=== PATIENT | female | born 1955 | race Caucasian/White ===

== ENCOUNTER 2016-09-22 12:52 | Inpatient (IN) | payer OTHER ==
[~2016-09-22] VITALS: Ht 162.6 cm; Wt 72.6 kg
[2016-09-22] VITALS (7 sets, daily range): BP systolic 118–158; BP diastolic 59–81; PULSE 72–108; RESP 18–20; TEMP 96.7–98.3; O2SAT 88–99
[~2016-09-22 12:52] MED LIST: BLOOD GLUCOSE T1 TES T-DERMAL; CELE10TA PO; CILO100T PO; FENO145T2 PO; LANTINJ SQ; LEVE500T8 PO; LOSA100T PO; LOVA20TA PO; LYRI150C PO; MELO7.5T4 PO; METF1000 PO; METO50TA PO; NOVOINJ3 SQ; ONETMIS2 T-DERMAL; PENT400T PO; POTA10CA PO; TRAM50TA PO; [UNRECOGNIZED DRUG - OTHER] T-DERMAL; [UNRECOGNIZED DRUG - OTHER] T-DERMAL
[2016-09-22] MEDS ORDERED: SODIUM CHLOR 0.9% 1000 ML INJ 1,000 ML IV SCH (13:06)
--- NOTE | 2016-09-22 13:14 | PD ---
HPI Chief Complaint: General Weakness Time Seen by Provider: 13:06 Travel History International Travel<30 days: No Contact w/Intl Traveler<30days: No Traveled to known affect area: No History of Present Illness HPI This 61-year-old woman who presents to the emergency department brought in by a friend complaining of unsteadiness in her gait and confusion for the past 2 days. Friend reports she's been acting loopy, as if she was drunk despite not drinking alcohol. Just reports diarrhea this morning and she was unable to make it to the bathroom on time. She's had some generalized weakness recently. No headache. No other focal symptoms. Was at her primary care doctor's office today and they sent her to the emergency department. Friend reports that she's had similar symptoms in the past but has not had trouble and a year or so. In the past and reportedly attributed to "mini strokes". History Past Medical History Narrative Medical Diabetes CAD, [place], heart failure Hyperlipidemia Hypertension Back problems History of breast cancer History of CVA in the past History of seizures Social History Tobacco Use: No Allergies-Medications (Allergen,Severity, Reaction): Coded Allergies: No Known Allergies (Unverified , 09/22/16) Reported Meds & Prescriptions Reported Meds & Active Scripts Active Lovastatin 20 Mg Tab 20 Mg PO DAILY Celexa (Citalopram Hydrobromide) 10 Mg Tab 10 Mg PO DAILY Lantus Solostar Pen Inj (Insulin Glargine) 300 Unit/3 Ml Pen 40 Units SQ BID Fenofibrate 145 Mg Tab 145 Mg PO BID Losartan (Losartan Potassium) 100 Mg Tab 100 Mg PO DAILY Metformin (Metformin HCl) 1,000 Mg Tab 1,000 Mg PO BIDPC With meals Novolog Flexpen Inj (Insulin Aspart) 300 Unit/3 Ml Pen 1 Units SQ ACHS SLIDING SCALE Levetiracetam 500 Mg Tab 500 Mg PO BID Tramadol (Tramadol HCl) 50 Mg Tab 50 Mg PO Q4H PRN Potassium Chloride ER (Potassium Chloride) 10 Meq Cap 10 Meq PO BID Metoprolol Tartrate 50 Mg Tab 50 Mg PO BID Meloxicam 7.5 Mg Tab 7.5 Mg PO DAILY Reported Lyrica (Pregabalin) 75 Mg Cap 75 Mg PO BID Review of Systems Except as stated in HPI: all other systems reviewed are Neg Physical Exam Narrative GENERAL: 61-year-old woman, bizarre behavior, intermittently sort of slumping over but then easily arousable, no acute distress. SKIN: Warm and dry. HEAD: Atraumatic. Normocephalic. EYES: Pupils equal and round. Pale conjunctiva. ENT: No nasal bleeding or discharge. Mucous membranes pink and moist. NECK: Trachea midline. No JVD. CARDIOVASCULAR: Regular rate and rhythm. No murmur appreciated. RESPIRATORY: No accessory muscle use. Clear to auscultation. Breath sounds equal bilaterally. GASTROINTESTINAL: Abdomen is flat and soft. There is mild left lower quadrant tenderness to palpation. MUSCULOSKELETAL: No obvious deformities. No edema. NEUROLOGICAL: Little bit dramatically loopy, swelling her head back and 4, intermittently endorsing "unresponsiveness". Symptoms are somewhat bizarre. She moves all 4 extremities. No facial asymmetry. There is no evidence of obvious stroke symptoms. PSYCHIATRIC: Bizarre. Not obviously psychotic. Data Data Last Documented VS Vital Signs Date Time Temp Pulse Resp B/P Pulse Ox O2 Delivery O2 Flow Rate FiO2 09/22/16 15:46 99 Nasal Cannula 2 09/22/16 15:45 75 18 140/74 09/22/16 13:04 98.3 Orders Electrocardiogram (09/22/16 13:06) Complete Blood Count With Diff (09/22/16 13:06) Comprehensive Metabolic Panel (09/22/16 13:06) Prothrombin Time / Inr (Pt) (09/22/16 13:06) Act Partial Throm Time (Ptt) (09/22/16 13:06) Troponin I (09/22/16 13:06) Thyroid Stimulating Hormone (09/22/16 13:06) Chest, Single Ap (09/22/16 13:06) Ct Brain W/O Iv Contrast(Rout) (09/22/16 13:06) Blood Glucose (09/22/16 13:06) Ecg Monitoring (09/22/16 13:06) Iv Access Insert/Monitor (09/22/16 13:06) Oximetry (09/22/16 13:06) Sodium Chloride 0.9% Flush (Ns Flush) (09/22/16 13:15) Sodium Chlor 0.9% 1000 Ml Inj (Ns 1000 M (09/22/16 13:06) Drug Screen, Random Urine (09/22/16 13:06) Alcohol (Ethanol) (09/22/16 13:06) Ct Abd/Pel W Iv Contrast(Rout) (09/22/16 ) Iohexol 350 Inj (Omnipaque 350 Inj) (09/22/16 15:41) Labs Laboratory Tests Test 09/22/16 13:47 White Blood Count 9.9 TH/MM3 Red Blood Count 4.87 MIL/MM3 Hemoglobin 14.8 GM/DL Hematocrit 42.6 % Mean Corpuscular Volume 87.6 FL Mean Corpuscular Hemoglobin 30.3 PG Mean Corpuscular Hemoglobin 34.6 % Concent Red Cell Distribution Width 13.2 % Platelet Count 254 TH/MM3 Mean Platelet Volume 8.2 FL Neutrophils (%) (Auto) 59.1 % Lymphocytes (%) (Auto) 31.3 % Monocytes (%) (Auto) 7.3 % Eosinophils (%) (Auto) 1.7 % Basophils (%) (Auto) 0.6 % Neutrophils # (Auto) 5.9 TH/MM3 Lymphocytes # (Auto) 3.1 TH/MM3 Monocytes # (Auto) 0.7 TH/MM3 Eosinophils # (Auto) 0.2 TH/MM3 Basophils # (Auto) 0.1 TH/MM3 CBC Comment DIFF FINAL Differential Comment Prothrombin Time 10.3 SEC Prothromb Time International 0.9 RATIO Ratio Activated Partial 25.9 SEC Thromboplast Time Sodium Level 137 MEQ/L Potassium Level 4.0 MEQ/L Chloride Level 103 MEQ/L Carbon Dioxide Level 24.8 MEQ/L Anion Gap 9 MEQ/L Blood Urea Nitrogen 11 MG/DL Creatinine 0.87 MG/DL Estimat Glomerular Filtration 66 ML/MIN Rate Random Glucose 116 MG/DL Calcium Level 8.4 MG/DL Total Bilirubin 0.5 MG/DL Aspartate Amino Transf 40 U/L (AST/SGOT) Alanine Aminotransferase 46 U/L (ALT/SGPT) Alkaline Phosphatase 106 U/L Troponin I LESS THAN 0.02 NG/ML Total Protein 6.9 GM/DL Albumin 3.1 GM/DL Thyroid Stimulating Hormone 1.090 uIU/ML 3rd Gen Ethyl Alcohol Level LESS THAN 3 MG/DL MDM Medical Decision Making Medical Screen Exam Complete: Yes Emergency Medical Condition: Yes Interpretation(s) My review of EKG: Normal sinus rhythm at a rate of 72, normal axis, normal intervals, some inferior Q waves, lateral T wave inversions and T-wave flattening, no definite evidence of acute ischemia. LABS: CBC unremarkable. CMP remarkable for mildly elevated glucose Troponin negative TSH normal Legs unremarkable Alcohol negative CT head negative CT abdomen and pelvis negative Differential Diagnosis Unsteadiness, infection, anemia, anxiety, CVA, mass, other Narrative Course Medical decision-making 60 year-old woman presents emergency department complaining of feeling loopy like she struck and unsteady. She also having bizarre mental status changes that seem like it may result a traumatized is not nonorganic. She has appear a little bit pale. Unfortunately obvious focal neuro deficits. She has a history of similar symptoms that were attributed to "mini strokes" which sounds like they never found any etiology. We'll check labs, CT head, EKG, reassess. FINAL: 58-year-old woman with bizarre altered mental status. Initial workups unremarkable. We'll plan on admission for further evaluation. Diagnosis Primary Impression: Altered mental status Juan Munroe MD Sep 22, 2016 13:14
[2016-09-22] MEDS ORDERED: SODIUM CHLORIDE 0.9% FLUSH 5 ML FLUSH IVF PRN ×2 (13:15→16:30)
--- NOTE | 2016-09-22 13:32 | RADRPT ---
EXAM DATE/TIME: 09/22/2016 13:05 [facility] COMPARISON: No previous studies available for comparison. INDICATIONS : Patient passed out today. MEDICAL HISTORY : None. SURGICAL HISTORY : Carotid stent. Cardiac recorder ENCOUNTER: Initial ACUITY: 1 day PAIN SCORE: 0/10 LOCATION: chest FINDINGS: Portable AP view of the chest demonstrates a normal-sized cardiac silhouette. No effusion, consolidat ion, or pneumothorax is visualized. The bones and soft tissues demonstrate no acute abnormality. EKG lines overlie the patient. Loop recorder type device overlies the left chest. CONCLUSION: No acute cardiopulmonary abnormality is identified. Noman Roche MD on September 22, 2016 at 13:29 Board Certified Radiologist. This report was verified electronically.
[2016-09-22 14:00] LABS: AUTOMATED NEUTROPHIL # 5.9 TH/MM3 (1.8-7.7); BASOPHIL # 0.1 TH/MM3 (0-0.2); BASOPHIL % 0.6 % (0.0-2.0); EOSINOPHIL # 0.2 TH/MM3 (0-0.4); EOSINOPHIL % 1.7 % (0.0-4.0); HEMATOCRIT 42.6 % (35.0-46.0); HEMO FLAGS DIFF FINAL; LYMPH % 31.3 % (9.0-44.0); LYMPHOCYTE # 3.1 TH/MM3 (1.0-4.8); MEAN CELL VOLUME 87.6 FL (80.0-100.0); MEAN CORPUSCULAR HEMOGLOBIN 30.3 PG (27.0-34.0); MEAN CORPUSCULAR HGB CONC 34.6 % (32.0-36.0); MONO % 7.3 % (0.0-8.0); NEUT % 59.1 % (16.0-70.0); PLATELET COUNT 254 TH/MM3 (150-450); RED BLOOD COUNT 4.87 MIL/MM3 (4.00-5.30); RED CELL DISTRIBUTION WIDTH 13.2 % (11.6-17.2); WHITE BLOOD COUNT 9.9 TH/MM3 (4.0-11.0)
[2016-09-22 14:12] LABS: APTT (PATIENT) 25.9 SEC (24.3-30.1); INTERNATIONAL NORMALIZED RATIO 0.9 RATIO; PROTHROMBIN TIME - PATIENT 10.3 SEC (9.8-11.6)
[2016-09-22] MEDS ORDERED: LYRI75CA PO (14:26)
[2016-09-22 15:01] LABS: BLOOD UREA NITROGEN 11 MG/DL (7-18); GLOMERULAR FILTRATION RATE 66 ML/MIN (>89)
[2016-09-22 15:02] LABS: ALKALINE PHOSPHATASE 106 U/L (45-117)
[2016-09-22 15:03] LABS: ALT (GPT) 46 U/L (10-53); ANION GAP 9 MEQ/L (5-15); AST (GOT) 40 U/L (15-37); BICARBONATE 24.8 MEQ/L (21.0-32.0); CHLORIDE 103 MEQ/L (98-107); SODIUM (NA) 137 MEQ/L (136-145); TOTAL BILIRUBIN ADULT 0.5 MG/DL (0.2-1.0)
[2016-09-22] MEDS ORDERED: METFORMIN HOLD POST IV CONTRAST XX SCH (15:40)
[2016-09-22] MEDS ORDERED: IOHEXOL 350 MG/ML 10 ML VIAL (for RAD DIAG) IV ONE (15:41)
--- NOTE | 2016-09-22 15:55 | RADRPT ---
EXAM DATE/TIME: 09/22/2016 15:27 [facility] COMPARISON: No previous studies available for comparison. INDICATIONS : Evaluate for diverticulitis,diahhria. IV CONTRAST: 95 cc Omnipaque 350 (iohexol) IV ORAL CONTRAST: No oral contrast ingested. RADIATION DOSE: 11.07 CTDIvol (mGy) MEDICAL HISTORY : Cardiovascular disease. Hypertension. diabetes SURGICAL HISTORY : Appendectomy. Cholecystectomy.Lumpectomy ENCOUNTER: Initial ACUITY: 2 days PAIN SCALE: 0/10 LOCATION: abdomen TECHNIQUE: Volumetric scanning of the abdomen and pelvis was performed. Using automated exposure control and ad justment of the mA and/or kV according to patient size, radiation dose was kept as low as reasonably achievable to obtain optimal diagnostic quality images. FINDINGS: LOWER LUNGS: The visualized lower lungs are clear. LIVER: Slightly heterogeneous and nodular. There is no dilation of the biliary tree. Cholecystectomy clips. SPLEEN: Normal size without lesion. PANCREAS: Calcifications with some minimal enlargement of the pancreatic duct consistent with chronic pancreati tis. KIDNEYS: Normal in size and shape. There is no mass, stone or hydronephrosis. ADRENAL GLANDS: Within normal limits. VASCULAR: There is no aortic aneurysm. BOWEL/MESENTERY: Diverticulosis of the sigmoid colon without diverticulitis. There is no free intraperitoneal air or fluid. ABDOMINAL WALL: Within normal limits. RETROPERITONEUM: There is no lymphadenopathy. BLADDER: No wall thickening or mass. REPRODUCTIVE: Within normal limits. INGUINAL: There is no lymphadenopathy or hernia. MUSCULOSKELETAL: Scoliosis and degenerative changes. CONCLUSION: 1. Diverticulosis of the sigmoid colon without diverticulitis. 2. Liver is slightly heterogeneous and nodular may be related to early morphologic changes. 3. Chronic pancreatitis. 4. Cholecystectomy. 1. Shashank Colindres MD on September 22, 2016 at 15:49 Board Certified Radiologist. This report was verified electronically.
--- NOTE | 2016-09-22 15:58 | RADRPT ---
EXAM DATE/TIME: 09/22/2016 15:24 [facility] COMPARISON: No previous studies available for comparison. INDICATIONS : Unsteady gait and confusion for two days. RADIATION DOSE: 56.36 CTDIvol (mGy) MEDICAL HISTORY : Cerebrovascular disease. Cardiovascular disease Diabetes SURGICAL HISTORY : Appendectomy. Cholecystectomy.Lumpectomy ENCOUNTER: Initial ACUITY: 2 days PAIN SCALE: 0/10 LOCATION: cranial TECHNIQUE: Multiple contiguous axial images were obtained of the head. Using automated exposure control and adj ustment of the mA and/or kV according to patient size, radiation dose was kept as low as reasonably a chievable to obtain optimal diagnostic quality images. FINDINGS: CEREBRUM: Areas low attenuation throughout the white matter. The ventricles are normal for age. No evidence of midline shift, mass lesion, hemorrhage or acute infarction. No extra-axial fluid collections are se en. POSTERIOR FOSSA: The cerebellum and brainstem are intact. The 4th ventricle is midline. The cerebellopontine angle i s unremarkable. EXTRACRANIAL: The visualized portion of the orbits is intact. SKULL: The calvaria is intact. No evidence of skull fracture. CONCLUSION: 1. Nonspecific white matter changes. 2. No acute intracranial abnormality. Shashank Colindres MD on September 22, 2016 at 15:55 Board Certified Radiologist. This report was verified electronically.
[2016-09-22] MEDS ORDERED: DEXTROSE 50% IN WATER 50 ML VIAL(D50) IV PUSH PRN (16:30)
[2016-09-22] MEDS ORDERED: GLUCAGON 1 MG/ML VIAL IM/SQ PRN (16:30)
--- NOTE | 2016-09-22 16:38 | HHI.HP ---
[facility] Service Family Medicine Primary Care Physician Paco Moore MD Admission Diagnosis altered mental status Diagnoses: International Travel<30 Days: No Contact w/Intl Traveler<30days: No Known Affected Area: No History of Present Illness 61-year-old female with a past medical history of severe hyperlipidemia, hypertension and seizure disorder presents to the emergency department with a 2 day history of weakness and altered mental status. Per the patient's roommate, the patient has been acting strangely and will have episodes of staring off into space and not ignore itching anything which then resolves on their own. The patient has a known seizure disorder for which she takes Keppra. Her last seizure was reportedly one year ago. The patient also has a history of "mini strokes" which were diagnosed also around a year ago at [facility]. The patient has had difficulty walking in a straight line, and has had to use the smith for balance. She describes weakness all over her body with no focal areas. Patient also complains of diffuse lower abdominal pain and diarrhea. She states that she regularly has diarrhea approximately every few weeks and that it always resolves on its own. She is status post multiple hernia repairs. CT of the abdomen and pelvis was significant only for chronic pancreatitis. Review of Systems Other Denies fever or chills Denies otorrhea, rhinorrhea. Endorses double vision. Denies sore throat and cough No chest pain, palpitations, shortness of breath Abdominal pain per history of present illness Positive diarrhea. Positive nausea. No emesis Positive weakness No rashes Past Family Social History Past Medical History DM HLD HTN Seizure disorder - last seizure 1 year ago Past Surgical History Neck cyst removal Hernia repair Appendectomy Cholecystectomy Loop recorder Allergies: Coded Allergies: No Known Allergies (Unverified , 09/22/16) Family History Unknown to patient Social History Lives in [place] with roommate. Occasional EtOH. Smokes PPD x 50 years. No illicit drug. Physical Exam Vital Signs Vital Signs Date Time Temp Pulse Resp B/P Pulse Ox O2 Delivery O2 Flow Rate FiO2 09/22/16 15:46 99 Nasal Cannula 2 09/22/16 15:45 75 18 140/74 88 Nasal Cannula 2 09/22/16 13:05 85 20 126/68 96 09/22/16 13:04 98.3 75 20 118/59 94 Physical Exam Gen.: No acute distress Head: Normocephalic. Atraumatic. EENT: Pupils equal round and reactive to light. Nose without drainage. Airway intact. Throat without injection. Cardiovascular: Regular rate and rhythm. No murmurs, rubs or gallops. Respiratory: Lungs clear to auscultation bilaterally. No wheezes or rhonchi. Abdomen: Soft, tender to palpation worse in the lower quadrants. Nondistended. No peritoneal signs. Musculoskeletal: No gross deformities. No edema. Skin: No obvious rashes or erythema. Neuro: Sensory and motor intact. Cranial nerves II through XII intact. 5/5 strength in upper and lower extremities. No focal deficits. Psych: Appropriate mood and affect Laboratory Laboratory Tests Test 09/22/16 13:47 White Blood Count 9.9 Red Blood Count 4.87 Hemoglobin 14.8 Hematocrit 42.6 Mean Corpuscular Volume 87.6 Mean Corpuscular Hemoglobin 30.3 Mean Corpuscular Hemoglobin 34.6 Concent Red Cell Distribution Width 13.2 Platelet Count 254 Mean Platelet Volume 8.2 Neutrophils (%) (Auto) 59.1 Lymphocytes (%) (Auto) 31.3 Monocytes (%) (Auto) 7.3 Eosinophils (%) (Auto) 1.7 Basophils (%) (Auto) 0.6 Neutrophils # (Auto) 5.9 Lymphocytes # (Auto) 3.1 Monocytes # (Auto) 0.7 Eosinophils # (Auto) 0.2 Basophils # (Auto) 0.1 CBC Comment DIFF FINAL Differential Comment Prothrombin Time 10.3 Prothromb Time International 0.9 Ratio Activated Partial 25.9 Thromboplast Time Sodium Level 137 Potassium Level 4.0 Chloride Level 103 Carbon Dioxide Level 24.8 Anion Gap 9 Blood Urea Nitrogen 11 Creatinine 0.87 Estimat Glomerular Filtration 66 Rate Random Glucose 116 Calcium Level 8.4 Total Bilirubin 0.5 Aspartate Amino Transf 40 (AST/SGOT) Alanine Aminotransferase 46 (ALT/SGPT) Alkaline Phosphatase 106 Troponin I LESS THAN 0.02 Total Protein 6.9 Albumin 3.1 Thyroid Stimulating Hormone 1.090 3rd Gen Ethyl Alcohol Level LESS THAN 3 Result Diagram: 09/22/16 1347 09/22/16 1347 Assessment and Plan Assessment and Plan 61-year-old female with a past medical history significant for uncontrolled hyperlipidemia, hypertension and seizure disorder presents to the emergency department with 2 days of generalized weakness, abdominal pain and absent spells. 1. CVA/TIA CT head within normal limits No focal deficits on physical exam A and O 4 Stroke workup including carotid ultrasound, MRI/MRA brain and echo pending Neurology consulted and appreciate their recommendations Aspirin 325 mg Patient high risk with last lipid profile significant for total cholesterol of 612, HDL 20, triglycerides 2708 2. Seizure disorder Patient having absent spells lasting seconds to minutes that self resolved Currently on Keppra Last seizure 1 year ago during similar episode Neurology consulted, appreciate their recommendations EEG pending 3. Hypertension Permissive hypertension Holding home medications 4. Abdominal pain CT abdomen and pelvis within normal limits except for chronic pancreatitis Patient with significant drinking history in the 60s and 70s No peritoneal signs, continue to monitor FEN: Fluids: Normal saline at 100 cc/hour Diet: Diabetic after swallow eval Anticoagulation: Heparin 5000 units every 8 hours Code Status Full code Problem List: (1) Altered mental status Status: Acute (2) Abdominal pain Status: Acute (3) Seizure disorder Status: Acute (4) HTN (hypertension) Status: Acute (5) HLD (hyperlipidemia) Status: Acute Pau Castillo MD R3 Sep 22, 2016 16:38
[2016-09-22] MEDS: ASPIRIN 325 MG TAB PO SCH (17:13)
[2016-09-22] MEDS: HEPARIN SODIUM - SQ 10,000 UNITS/ML VIAL SQ SCH (17:13)
[2016-09-22 17:30] LABS: HEMOGLOBIN A1a 1.4 %; HEMOGLOBIN A1b 2.8 %; HEMOGLOBIN Ao 77.4 %; HEMOGLOBIN LA1C 1.9 %; HEMOGLOBIN P3 4.5 %
--- NOTE | 2016-09-22 19:25 | RADRPT ---
EXAM DATE/TIME: 09/22/2016 17:58 [facility] COMPARISON: No previous studies available for comparison. INDICATIONS : Transient ischemic attack. MEDICAL HISTORY : Myocardial infarction. Congestive heart failure. Osteoarthritis. Cataracts. Dysarthria. CVA. Seizures . CAD. HTN. Hyperlipidemia. Diabetes. Breast cancer. Skin cancer. SURGICAL HISTORY : Tonsillectomy. Coronary artery stent. Umbilical hernia repair. Teratoma removal from throat. Implante d biologist. Appendectomy. Cholecystectomy. Lumpectomy. Kidney stone extraction. ENCOUNTER: Initial ACUITY: 2 days PAIN SCORE: 8/10 LOCATION: Bilateral neck PEAK SYSTOLIC VELOCITIES (cm/sec): ICA/CCA RATIO: Right: 1.5 Left: 0.9 ICA: Right: 76 Left: 58 CCA: Right: 52 Left: 67 ECA: Right: 71 Left: 67 VERTEBRAL: Right: 49 antegrade Left: 47 antegrade Elevated flow velocities and ICA/CCA ratios have been found to correlate with increased degrees of vessel stenosis, calculated as percentage of diameter relative to a normal segment of distal ICA/CCA FINDINGS: RIGHT CAROTID: Moderate focal soft and calcified plaque seen of the bulb and proximal internal carotid artery. LEFT CAROTID: Mild plaque seen of the bulb and proximal internal carotid artery. VERTEBRAL ARTERIES: Antegrade flow is seen in both vertebral arteries. MISCELLANEOUS: Scattered bilateral thyroid nodules are present measuring up to 10 mm in size. CONCLUSION: 1. Bilateral carotid bifurcation atherosclerotic plaque demonstrated, moderate on the right and mild on the left. No hemodynamically significant narrowing. 2. Incidentally seen bilateral nonspecific small thyroid nodules. Dedicated outpatient thyroid ultras ound recommended for further evaluation and probable surveillance. Noman Calderon MD on September 22, 2016 at 19:21 Board Certified Radiologist. This report was verified electronically.
[2016-09-22 20:03] LABS: BACTERIA, URINE MANY /hpf; BLOOD, URINE NEG (NEG); GLUCOSE,URINE NEG (NEG); KETONE, URINE NEG (NEG); MUCUS URINE FEW /lpf (OCC); SQUAMOUS EPITHELIAL CELL URINE 3 /hpf (0-5); URINE COLOR YELLOW (YELLW/STRAW)
[2016-09-22 20:04] LABS: NITRITE,URINE POS (NEG)
[2016-09-22 20:05] LABS: COMMENT (UR) CULTURE INDICATED; CULTURE IF INDICATED CULTURE INDICATED
[2016-09-22 20:07] LABS: AMPHETAMINE, URINE NEG (NEG); BARBITURATES, URINE NEG (NEG); COCAINE, URINE NEG (NEG)
[2016-09-22] MEDS: INSULIN DETEMIR 100 UNITS/ML VIAL SQ SCH (21:00)
[2016-09-22] MEDS: INSULIN ASPART SUPPLEMENTAL SCALE SQ SCH (21:00)
[2016-09-22] MEDS: PREGABALIN 75 MG CAP PO SCH (22:53)
[2016-09-22] MEDS: POTASSIUM CHLORIDE 10 MEQ CAP PO SCH (22:53)
[2016-09-22] MEDS: levETIRAcetam 500 MG TAB PO SCH (22:53)
[2016-09-22] MEDS: SODIUM CHLORIDE 0.9% FLUSH 5 ML FLUSH IVF SCH (22:53)
[2016-09-22] MEDS: METOPROLOL TARTRATE 50 MG TAB PO SCH (22:53)
[2016-09-23] VITALS (8 sets, daily range): BP systolic 119–161; BP diastolic 62–85; PULSE 62–80; RESP 16–18; TEMP 95.7–98.3; O2SAT 94–97
--- NOTE | 2016-09-23 00:05 | MB ---
cc: TOSHA MIR MD DATE OF CONSULTATION: 09/22/2016 REASON FOR CONSULTATION: Encephalopathy and seizures HISTORY OF PRESENT ILLNESS Ms. See is a 61-year-old female with past medical history of hyperlipidemia, hypertension and seizure disorder, presents to the emergency department of [facility] with a two day history of generalized weakness, and altered mental status. The patient has been acting strangely as per the patient's roommate and having episodes of staring into space and the patient states that she felt dizzy after she had abdominal pain and diarrhea. The patient takes Keppra and her last seizure as she states was one year ago. Also the patient has a history of "mini strokes." The patient denies headache, double vision, slurred speech, weakness of an extremity, sphincter control disturbances. REVIEW OF SYSTEMS A 12 point review of systems is negative except for what is stated in the HPI. PAST MEDICAL HISTORY 1. Diabetes mellitus. 2. Hypertension. 3. Hyperlipidemia. 4. Seizure disorder. Last seizure reportedly was one year ago. PAST SURGICAL HISTORY: 1. Neck cyst removal. 2. Hernia repair 3. Appendectomy 4. Cholecystectomy 5. Loop recorder. ALLERGIES No known allergies. FAMILY HISTORY Unknown to the patient. SOCIAL HISTORY Lives with roommate, occasional alcohol intake, smokes one-pack per day for 50 years. No illicit drug use. PHYSICAL EXAMINATION General: The patient was sleepy at the beginning of the encounter but she was arousable, good historian, not in acute distress. HEENT: Atraumatic, normocephalic. Intact hearing. Intact vision. Neck: No carotid bruit. No signs of meningeal irritation. Cardiovascular: Regular rate and rhythm. Respiratory: Clear to auscultation. No wheezes. Musculoskeletal: Moves all four extremities equally. No edema and no cyanosis. NEUROLOGIC EXAMINATION: Awake, alert, oriented to time, person and place. Intact memory, intact speech. No dysarthria. No dysphagia. Cranial nerves II-XII are grossly intact. Muscle strength is 5/5 bilateral symmetrical in both upper and lower extremities. Sensation to light touch and temperature is intact bilateral and symmetrical. [id number], [id number] is bilateral symmetrical, intact. Reflexes 2+ bilateral and symmetrical. Plantars are bilateral downgoing. Mild slurring of speech during the encounter, but intact naming and intact repetition. LABORATORY DATA White blood cells 9.10, hemoglobin 14.8, MCV 87.6, platelet count 254, INR 0.9. Sodium was 137, potassium 4, anion gap 9, BUN 11, creatinine 0.87, calcium 8.4, AST 40, ALT 46, alkaline phosphatase 106. DIAGNOSTICS IMAGING - Head CT revealed nonspecific white matter changes and no acute intracranial abnormality. DIAGNOSTIC IMPRESSION 1. History of seizure disorder with breakthrough seizure. 2. Questionable compliance to medication, possible etiology is non adherence to medication. 3. Unverified home dose of Keppra. 4. Possible TIA / stroke, examination is nonfocal, however, there is mild slurring of speech and fluctuating level of consciousness and sleepiness. 5. Hypertension. 6. Abdominal pain / diarrhea. PLAN - Neuro checks q. four hourly. - Aspirin 81 mg - MRI brain - MRA brain -Carotid ultrasound - EEG. -Keppra 500 mg twice daily until home dose is verified. -Seizure precautions. -SCD prophylaxis. -PT/OT recommendations are appreciated. -GI prophylaxis. Thank you for allowing me to participate in the care of your patient. MD ROSEMARIE Weinberg/CROW /10:42 PM /11:45 PM LUCERO
[2016-09-23] MEDS: HEPARIN SODIUM - SQ 10,000 UNITS/ML VIAL SQ SCH ×3 (01:08→18:03)
[2016-09-23] MEDS: INSULIN ASPART SUPPLEMENTAL SCALE SQ SCH ×4 (04:59→21:00)
[2016-09-23 06:20] LABS: BASOPHIL # 0.1 TH/MM3 (0-0.2); BASOPHIL % 0.9 % (0.0-2.0); EOSINOPHIL # 0.2 TH/MM3 (0-0.4); EOSINOPHIL % 2.2 % (0.0-4.0); HEMATOCRIT 38.2 % (35.0-46.0); HEMO FLAGS DIFF FINAL; LYMPH % 40.5 % (9.0-44.0); LYMPHOCYTE # 3.3 TH/MM3 (1.0-4.8); MEAN CELL VOLUME 87.4 FL (80.0-100.0); MEAN CORPUSCULAR HEMOGLOBIN 30.3 PG (27.0-34.0); MEAN CORPUSCULAR HGB CONC 34.6 % (32.0-36.0); MONO % 7.4 % (0.0-8.0); PLATELET COUNT 199 TH/MM3 (150-450); RED BLOOD COUNT 4.37 MIL/MM3 (4.00-5.30); RED CELL DISTRIBUTION WIDTH 13.1 % (11.6-17.2); WHITE BLOOD COUNT 8.1 TH/MM3 (4.0-11.0)
[2016-09-23 07:04] LABS: BICARBONATE 28.8 MEQ/L (21.0-32.0); HDL CHOLESTEROL 30.5 MG/DL (40.0-60.0); POTASSIUM 3.6 MEQ/L (3.5-5.1)
[2016-09-23] MEDS: INSULIN DETEMIR 100 UNITS/ML VIAL SQ SCH ×2 (09:00→20:46)
[2016-09-23] MEDS: LOSARTAN 50 MG TAB PO SCH (09:20)
[2016-09-23] MEDS: METOPROLOL TARTRATE 50 MG TAB PO SCH (09:20)
[2016-09-23] MEDS: PRAVASTATIN SOD 20 MG TAB PO SCH (09:20)
[2016-09-23] MEDS: PREGABALIN 75 MG CAP PO SCH ×2 (09:21→20:46)
[2016-09-23] MEDS: CITALOPRAM HYDROBROMIDE 20 MG TAB PO SCH (09:21)
[2016-09-23] MEDS: ASPIRIN 325 MG TAB PO SCH (09:21)
[2016-09-23] MEDS: levETIRAcetam 500 MG TAB PO SCH ×2 (09:21→20:46)
[2016-09-23] MEDS: SODIUM CHLORIDE 0.9% FLUSH 5 ML FLUSH IVF SCH ×2 (09:22→20:52)
[2016-09-23] MEDS: POTASSIUM CHLORIDE 10 MEQ CAP PO SCH ×2 (09:40→20:46)
[2016-09-23] MEDS ORDERED: PILL SPLITTER OTHER PRN (09:45)
--- NOTE | 2016-09-23 13:19 | RADRPT ---
EXAM DATE/TIME: 09/23/2016 11:55 [facility] COMPARISON: MRI BRAIN W/O CONTRAST, September 23, 2016, 11:55. INDICATIONS : Seizures. TIA. Altered mental status. MEDICAL HISTORY : Hypertension. Diabetes mellitus type 2. Myocardial infarction. SURGICAL HISTORY : Tonsillectomy. Cholecystectomy. Appendectomy. Hernia. Loop recorder. ENCOUNTER: Subsequent ACUITY: 2 day PAIN SCORE: 0/10 LOCATION: head. Please note a normal MRA of the brain does not entirely exclude the possibility of a small aneurysm, nor the possibility of distal intracranial vessel disease. TECHNIQUE: 3D time of flight MRA was performed. Source images, multiplanar STS MIP, and 3D volume MIP reconstru ctions were reviewed. FINDINGS: Mild luminal irregularity typical of intracranial atherosclerosis seen diffusely. The distal vessels in the right middle cerebral artery distribution are slightly attenuated relative to the left. No res tricted diffusion seen on the MRI. No evidence of vessel thrombosis. There are no aneurysms. CONCLUSION: Mild intracranial atherosclerosis without an acute vascular abnormality demonstrated. Noman Calderon MD on September 23, 2016 at 13:15 Board Certified Radiologist. This report was verified electronically.
--- NOTE | 2016-09-23 13:22 | RADRPT ---
EXAM DATE/TIME: 09/23/2016 11:55 [facility] COMPARISON: MRA BRAIN W/O CONTRAST, September 23, 2016, 11:55. CT BRAIN W/O CONTRAST, September 22, 2016, 15:24. INDICATIONS : Seizures. TIA. Altered mental status. MEDICAL HISTORY : Diabetes mellitus type 2. Hypertension. Myocardial infarction. SURGICAL HISTORY : Appendectomy. Cholecystectomy. Tonsillectomy. Hernia. Loop recorder. ENCOUNTER: Subsequent ACUITY: 2 day PAIN SCORE: 0/10 LOCATION: head. TECHNIQUE: Multiplanar, multisequence MRI of the brain was performed without contrast. FINDINGS: CEREBRUM: The ventricles are normal for age. No evidence of midline shift, mass lesion, hemorrhage or acute in farction. No extraaxial fluid collections are seen. The pituitary gland and suprasellar cistern are normal in configuration. WHITE MATTER: Moderate severity chronic flair signal abnormality seen in the deep, periventricular and pericallosal white matter of both vertebral hemispheres. This is fairly striking for a 61-year-old patient. An as sociated 6 mm cystic space is seen in the left parietal lobe white matter. POSTERIOR FOSSA: The cerebellum and brainstem are intact. The 4th ventricle is midline. The cerebellopontine angle is unremarkable. The cerebellar tonsils are normal in position. DIFFUSION IMAGING: No focal areas of restricted diffusion are seen. No evidence of acute infarction. EXTRACRANIAL: The visualized portions of the orbits and paranasal sinuses are unremarkable. CONCLUSION: 1. No acute infarct or other acute intracranial abnormality demonstrated. 2. Chronic white matter changes as above. These are nonspecific but considerable for a patient this a ge and with a prominent pericallosal component. Multiple sclerosus should be included in the differen tial. Noman Calderon MD on September 23, 2016 at 13:17 Board Certified Radiologist. This report was verified electronically.
[2016-09-23] MEDS: FENOFIBRATE 145 MG TAB PO SCH (13:25)
[2016-09-23] MEDS: SULFAMETHOXAZOLE-TRIMETHOPRIM DS 800-160 MG TAB PO SCH ×2 (13:25→20:46)
[2016-09-23] MEDS ORDERED: KETOROLAC TROMETHAMINE 60 MG/2 ML (IM) VIAL IM PRN (13:45)
--- NOTE | 2016-09-23 13:45 | HHI.PR ---
Addendum to Inpatient Note Addendum Reason: Additional Documentation Additional Information Went to see pt. She and her friend agree she is acting and feeling less "drunk" even though she denies any recent alcohol use. Discussed results of some of her tests. Pt is currently c/o hip pain, left > right. - follow up thyroid nodules with outpatient US of thyroid - Toradol 30mg IV q6h PRN for hip pain Paco Moore MD R1 Sep 23, 2016 13:45
[2016-09-23] MEDS ORDERED: KETOROLAC TROMETHAMINE 30 MG/ML (IVP) VIAL IV PUSH PRN (14:00)
--- NOTE | 2016-09-23 15:56 | EC ---
Study Study Date:09/23/2016 STUDY CONCLUSIONS SUMMARY LEFT VENTRICLE: The cavity size was normal. Systolic function was probably normal. The estimated ejection fraction was in the range of 55% to 60%. Although no diagnostic regional wall motion abnormality was identified, this possibility cannot be completely excluded on the basis of this study. Doppler parameters are consistent with abnormal left ventricular relaxation (grade 1 diastolic dysfunction). If LV function is below 40, please consider prescribing an ACEI or ARB or document rationale for non-use. PROCEDURE DATA STUDY STATUS: Elective. Procedure: Transthoracic echocardiography. Image quality was good. Scanning was performed from the parasternal, apical, and subcostal acoustic windows. Study completion: The patient tolerated the procedure well. Transthoracic echocardiography. M-mode, complete 2D, complete spectral Doppler, and color Doppler. Height: Height: 64in. Weight: Weight: 153.7lb. Body mass index: BMI: 26.4kg/m^2. Body surface area: BSA: 1.75m^2. Patient status: Inpatient. CARDIAC ANATOMY LEFT VENTRICLE: The cavity size was normal. There was no hypertrophy. Systolic function was probably normal. The estimated ejection fraction was in the range of 55% to 60%. Although no diagnostic regional wall motion abnormality was identified, this possibility cannot be completely excluded on the basis of this study. Doppler parameters are consistent with abnormal left ventricular relaxation (grade 1 diastolic dysfunction). AORTIC VALVE: The valve appears to be grossly normal. Doppler: There was no stenosis. No significant regurgitation. Valve area: 2.01cm^2 (Vmax). Indexed valve area: 1.15cm^2/m^2 (Vmax). MITRAL VALVE: Moderately calcified annulus. Doppler: There was no evidence for stenosis. Trace regurgitation. Peak gradient: 4mm Hg (D). LEFT ATRIUM: The atrium was at the upper limits of normal in size. PULMONIC VALVE: Not well visualized. TRICUSPID VALVE: Not well visualized. Doppler: No significant regurgitation. Patient weight: 153.7lb _Ejection fraction:_ 65-75% _Fractional shortening:_ 32% up to 5Kg 5-11.5Kg 11.6-22.9Kg 23-45Kg 45-57Kg Aortic Root 7-13 <17 13-22 17-27 17-27 LA diam 6-13 <23 24-38 33-47 37-40 RVID 10-17 7-15 7-15 7-18 8-17 LVIDd 12-22 <32 24-38 33-47 37-40 LVPW 2-4 3-6 5-7 6-8 7-8 IVS 2-4 3-6 5-7 6-8 7-8 BASIC MEASUREMENTS ADULT NORMAL Left ventricle LV internal dimension, ED, chordal 48.4 mm 43-52 level, PLAX LV internal dimension, ES, chordal 37 mm 23-38 level, PLAX Fractional shortening, chordal level, *24 % >29 PLAX LV posterior wall thickness, ED 9.14 mm IVS/LVPW ratio, ED 1.03 <1.3 Ventricular septum Septal thickness, ED 9.43 mm Aortic valve Leaflet separation 17 mm 15-26 Right ventricle RV internal dimension, ED, PLAX 21.9 mm 19-38 BASIC MEASUREMENTS ADULT NORMAL Aortic valve Leaflet separation 17 mm 15-26 Aorta Root diameter, ED 23 mm 20-37 Left atrium Anterior-posterior dimension, ES 39 mm 19-40 Anterior-posterior dimension index, ES *2.23 cm/m^2 <2.2 LA/aortic root ratio 1.7 DOPPLER MEASUREMENTS ADULT NORMAL Aortic valve Peak velocity, S 111 cm/s Valve area, Vmax 2.01 cm^2 Valve area index, Vmax 1.15 cm^2/m^2 Mitral valve Peak E-wave velocity 98.2 cm/s Peak A-wave velocity 109 cm/s Deceleration time 218 ms 150-230 Peak gradient, D 4 mm Hg Peak E/A ratio 0.9 Maximal regurgitant velocity 254 cm/s Pulmonic valve Peak velocity, S 76 cm/s LEGEND: Mean values are shown as u=mean value. Asterisk (*) vargas values outside specified normal range. Prepared and signed by Pierre Julio [id number]
--- NOTE | 2016-09-23 17:17 | HHI.FPPN ---
Subjective Remarks Pt seen and examined. AFVSS. No acute events overnight. Reports the dizziness is much improved from yesterday though still residual. States she has had dizziness for years and the only reason she came in yesterday is because her PCP sent her. Denies blurry vision, diplopia, chest pain, shortness of breath, abdominal pain, nausea, or vomiting. (Mayra Coleman MD) Objective Vitals Vital Signs Date Time Temp Pulse Resp B/P Pulse Ox O2 Delivery O2 Flow Rate FiO2 09/23/16 12:00 97.0 62 18 147/82 97 09/23/16 09:01 97 Nasal Cannula 2.00 09/23/16 08:00 97.0 65 17 144/80 97 09/23/16 04:00 97.9 64 18 119/66 95 09/23/16 01:12 62 18 146/78 97 09/23/16 00:00 97.7 63 18 161/82 94 09/22/16 20:00 96.7 108 18 158/81 96 09/22/16 17:50 72 20 133/60 98 Nasal Cannula 2 I/O 09/22/16 09/22/16 09/22/16 09/23/16 09/23/16 09/23/16 07:00 15:00 23:00 07:00 15:00 23:00 Intake Total 0 ml 0 ml 0 ml Output Total 300 ml 500 ml 500 ml Balance -300 ml -500 ml -500 ml Intake Oral 0 ml IV Total 0 ml 0 ml Output Urine Total 300 ml 500 ml 500 ml # Bowel Movements 0 0 0 (Mayra Coleman MD) Result Diagram: 09/23/16 0527 09/23/16 0527 A/P Assessment and Plan 61-year-old female with a past medical history significant for uncontrolled hyperlipidemia, hypertension and seizure disorder presents to the emergency department with 2 days of generalized weakness, abdominal pain and absent spells. 1. CVA/TIA CT head within normal limits No focal deficits on physical exam A and O 4 Stroke workup including carotid ultrasound, MRI/MRA brain and echo pending Neurology consulted and appreciate their recommendations Aspirin 325 mg Patient high risk with last lipid profile significant for total cholesterol of 612, HDL 20, triglycerides 2708 2. Seizure disorder Patient having absent spells lasting seconds to minutes that self resolved Currently on Keppra Last seizure 1 year ago during similar episode Neurology consulted, appreciate their recommendations EEG pending 3. Hypertension Permissive hypertension Holding home medications 4. Abdominal pain CT abdomen and pelvis within normal limits except for chronic pancreatitis Patient with significant drinking history in the 60s and 70s No peritoneal signs, continue to monitor FEN: Fluids: Normal saline at 100 cc/hour Diet: Diabetic after swallow eval Anticoagulation: Heparin 5000 units every 8 hours (Mayra Coleman MD) Attending Attestation Patient seen and examined. Case reviewed and discussed with the resident team. Agree with plan of care as discussed with me and documented in the resident note. she was about to get her EEG when I saw her. We discussed driving and I reminded her that there is no driving after a seizure legally for 6 months after a seizure. I advised her to check with Neurology when she would be safe to drive. (Ivonne Mims MD) Problem List: (1) Altered mental status Status: Acute (2) Abdominal pain Status: Acute (3) Seizure disorder Status: Acute (4) HTN (hypertension) Status: Acute (5) HLD (hyperlipidemia) Status: Acute (Mayra Coleman MD) Mayra Coleman MD Sep 23, 2016 17:17 Ivonne Mims MD Sep 23, 2016 17:27
--- NOTE | 2016-09-23 19:29 | MG ---
cc: REDDY PALMER M.D. Lab No: Date: 09/23/2016 Age: Sex: F Race: REQUESTING PHYSICIAN Dr. Castillo INTRODUCTION An EEG was obtained on this 61-year-old patient with a history of depression, anxiety, unsteadiness. DESCRIPTION The patient is awake and asleep during this study. The tracing shows a lot of alpha rhythms centrally and posteriorly. There is also some 6-7 per second activity occasionally. There are beta rhythms frontally. Photic stimulation showed minimal driving response bilaterally. Hyperventilation was not performed. The patient awake and asleep intermittently. INTERPRETATION This EEG shows very mild slowing suggestive of very mild diffuse disturbance of cerebral function but no epileptiform features present. Reddy Palmer MD OFC/KK /6:36 PM /7:26 PM
--- NOTE | 2016-09-23 21:34 | HHI.PR ---
Review/Management Diagnosis - History of seizure disorder with breakthrough seizure. - Questionable compliance to medication, possible etiology is non adherence to medication On home dose of Keppra 500mg bid - TIA Resolved slurring of speech. - Abnormal MRI brain - Hypertension. - Abdominal pain / diarrhea. Plan - Neuro checks q. four hourly. - Aspirin 81 mg - MRI brain with contrast -Keppra 500 mg twice daily -Seizure precautions. -SCD prophylaxis. -PT/OT recommendations are appreciated. -GI prophylaxis. Diagnosis/Plan: Subjective Subjective Comments No acute events reported No headache, no dizziness Patient with resolved symptoms, she states she is back to normal EEG with no evidence of an ictal activity, but mild slowing MRI brain w/o contrast with chronic white matter changes, as per report, demyelination is a possibility Active Medications Current Medications Medications (Trade) Dose Ordered Sig/Lolis Route Start Time Stop Time Status Last Admin (CeleXA) 10 mg DAILY PO 09/23/16 09:00 09/23/16 09:21 (Tricor) 145 mg DAILY PO 09/23/16 10:30 09/23/16 13:25 (Keppra) 500 mg BID PO 09/22/16 21:00 09/23/16 20:46 (Cozaar) 100 mg DAILY PO 09/23/16 09:00 Hold 09/23/16 09:20 (Pravachol) 20 mg DAILY PO 09/23/16 09:00 09/23/16 09:20 (Lopressor) 50 mg BID PO 09/22/16 21:00 Hold 09/23/16 09:20 (KCl) 10 meq BID PO 09/22/16 21:00 09/23/16 20:46 (Lyrica) 75 mg BID PO 09/22/16 21:00 09/23/16 20:46 (Levemir Inj) 40 units BID SQ 09/22/16 21:00 09/23/16 20:46 (NS Flush) 2 ml BID IVF 09/22/16 21:00 09/23/16 20:52 (NS Flush) 2 ml UNSCH PRN IVF 09/22/16 16:30 (Aspirin) 325 mg DAILY PO 09/22/16 16:30 09/23/16 09:21 (D50w (Vial) Inj) 25 ml UNSCH PRN IV PUSH 09/22/16 16:30 (Glucagon Inj) 1 mg UNSCH PRN IM/SQ 09/22/16 16:30 (Heparin Inj) 5,000 units Q8H SQ 09/22/16 17:00 09/23/16 18:03 Miscellaneous Information HOLD METFORMIN FOR... Q24H XX 09/22/16 15:40 09/24/16 15:39 (Pill Splitter) 1 ea UNSCH PRN OTHER 09/23/16 09:45 09/23/16 09:41 (Bactrim Ds 800-160 Mg) 1 tab Q12HR PO 09/23/16 10:30 09/23/16 20:46 (Toradol Inj) 30 mg Q6H PRN IV PUSH 09/23/16 14:00 09/28/16 13:59 Allergies Allergies Coded Allergies No Known Allergies (Unverified09/22/16) Exam I&O / VS 09/22/16 09/22/16 09/23/16 15:00 23:00 07:00 Intake Total 0 ml 0 ml Output Total 300 ml 500 ml Balance -300 ml -500 ml IV Total 0 ml 0 ml Output Urine Total 300 ml 500 ml # Bowel Movements 0 0 Vital Signs Date Time Temp Pulse Resp B/P Pulse Ox O2 Delivery O2 Flow Rate FiO2 09/23/16 20:00 98.3 80 16 143/62 97 09/23/16 16:00 95.7 70 17 156/85 96 09/23/16 12:00 97.0 62 18 147/82 97 09/23/16 09:01 97 Nasal Cannula 2.00 09/23/16 08:00 97.0 65 17 144/80 97 09/23/16 04:00 97.9 64 18 119/66 95 09/23/16 01:12 62 18 146/78 97 09/23/16 00:00 97.7 63 18 161/82 94 Exam Comments General: The patient is wake, alert, not in acute distress HEENT: Atraumatic, normocephalic. Intact hearing. Intact vision. Neck: No carotid bruit. No signs of meningeal irritation. Cardiovascular: Regular rate and rhythm. Respiratory: Clear to auscultation. No wheezes. Musculoskeletal: Moves all four extremities equally. No edema and no cyanosis. NEUROLOGIC EXAMINATION: Awake, alert, oriented to time, person and place. Intact memory, intact speech. No dysarthria. No dysphagia. Cranial nerves II-XII are grossly intact. Negative jaw reflex. Muscle strength is 5/5 bilateral symmetrical in both upper and lower extremities. Sensation to light touch and temperature is intact bilateral and symmetrical. [id number], [id number] is bilateral symmetrical, intact. Reflexes 2+ bilateral and symmetrical. Plantars are bilateral downgoing. Intact stance, negative Romberg's sign, no ataxia. Normal finger nose and hell to lim test Objective Radiology Results Last 72 hours Impressions Head Magnetic Resonance Angiography 09/23/16 Signed Impressions: Service Date/Time: Friday, September 23, 2016 11:55 - CONCLUSION: Mild intracranial atherosclerosis without an acute vascular abnormality demonstrated. Noman Calderon MD Brain MRI 09/23/16 Signed Impressions: Service Date/Time: Friday, September 23, 2016 11:55 - CONCLUSION: 1. No acute infarct or other acute intracranial abnormality demonstrated. 2. Chronic white matter changes as above. These are nonspecific but considerable for a patient this age and with a prominent pericallosal component. Multiple sclerosus should be included in the differential. Noman Calderon MD Head CT [id number]/22/161305 Signed Impressions: Service Date/Time: Thursday, September 22, 2016 15:24 - CONCLUSION: 1. Nonspecific white matter changes. 2. No acute intracranial abnormality. Shashank Colindres MD Chest X-Ray 09/22/161305 Signed Impressions: Service Date/Time: Thursday, September 22, 2016 13:05 - CONCLUSION: No acute cardiopulmonary abnormality is identified. Noman Roche MD Carotid Artery Ultrasound 09/22/16 Signed Impressions: Service Date/Time: Thursday, September 22, 2016 17:58 - CONCLUSION: 1. Bilateral carotid bifurcation atherosclerotic plaque demonstrated, moderate on the right and mild on the left. No hemodynamically significant narrowing. 2. Incidentally seen bilateral nonspecific small thyroid nodules. Dedicated outpatient thyroid ultrasound recommended for further evaluation and probable surveillance. Noman Calderon MD Abdomen/Pelvis CT 09/22/16 Signed Impressions: Service Date/Time: Thursday, September 22, 2016 15:27 - CONCLUSION: 1. Diverticulosis of the sigmoid colon without diverticulitis. 2. Liver is slightly heterogeneous and nodular may be related to early morphologic changes. 3. Chronic pancreatitis. 4. Cholecystectomy. 1. Shashank Colindres MD Micro and Labs Laboratory Tests Test 09/23/16 05:27 White Blood Count 8.1 Red Blood Count 4.37 Hemoglobin 13.2 Hematocrit 38.2 Mean Corpuscular Volume 87.4 Mean Corpuscular Hemoglobin 30.3 Mean Corpuscular Hemoglobin 34.6 Concent Red Cell Distribution Width 13.1 Platelet Count 199 Mean Platelet Volume 8.4 Neutrophils (%) (Auto) 49.0 Lymphocytes (%) (Auto) 40.5 Monocytes (%) (Auto) 7.4 Eosinophils (%) (Auto) 2.2 Basophils (%) (Auto) 0.9 Neutrophils # (Auto) 4.0 Lymphocytes # (Auto) 3.3 Monocytes # (Auto) 0.6 Eosinophils # (Auto) 0.2 Basophils # (Auto) 0.1 CBC Comment DIFF FINAL Differential Comment Sodium Level 139 Potassium Level 3.6 Chloride Level 104 Carbon Dioxide Level 28.8 Anion Gap 6 Blood Urea Nitrogen 9 Creatinine 0.70 Estimat Glomerular Filtration 85 Rate Random Glucose 100 Calcium Level 8.1 Triglycerides Level 1686 Cholesterol Level 286 LDL Cholesterol HDL Cholesterol 30.5 Cholesterol/HDL Ratio 9.37 Date/Time Procedure Status Source Growth 09/22/16 19:30 Urine Culture - Preliminary Resulted Urine Clean Catch Gram Negative Vadim Velazquez MD Sep 23, 2016 21:34
[2016-09-24] VITALS: BP 126/82; PULSE 73; RESP 16; TEMP 97.5; O2SAT 94
[2016-09-24] MEDS: HEPARIN SODIUM - SQ 10,000 UNITS/ML VIAL SQ SCH ×3 (00:33→17:31)
[2016-09-24] MEDS: INSULIN ASPART SUPPLEMENTAL SCALE SQ SCH ×4 (05:14→21:48)
[2016-09-24 08:00] VITALS: BP 144/72; PULSE 70; RESP 18; TEMP 97.8; O2SAT 98
--- NOTE | 2016-09-24 08:44 | HHI.FPPN ---
Subjective Remarks Pt seen and examined this morning. AFVSS. No acute events overnight. Reports she is feeling back to her baseline. Endorses mild dizziness which she states is typical for her. Denies blurry vision, double vision, weakness, slurred speech, chest pain, or shortness of breath. Tolerating PO without nausea or vomiting. Ambulating. Complains of bilateral hip pain especially in the left. Wants to go home today if possible. (Mayra Coleman MD) Objective Vitals Vital Signs Date Time Temp Pulse Resp B/P Pulse Ox O2 Delivery O2 Flow Rate FiO2 09/24/16 00:00 97.5 73 16 126/82 94 09/23/16 20:00 98.3 80 16 143/62 97 09/23/16 16:00 95.7 70 17 156/85 96 09/23/16 12:00 97.0 62 18 147/82 97 09/23/16 09:01 97 Nasal Cannula 2.00 I/O 09/23/16 09/23/16 09/23/16 09/24/16 09/24/16 09/24/16 07:00 15:00 23:00 07:00 15:00 23:00 Intake Total 0 ml 0 ml 400 ml 420 ml Output Total 500 ml 500 ml 650 ml Balance -500 ml -500 ml -250 ml 420 ml Intake Oral 0 ml 400 ml 420 ml IV Total 0 ml Output Urine Total 500 ml 500 ml 650 ml # Voids 3 # Bowel Movements 0 0 0 0 (Mayra Coleman MD) Result Diagram: 09/23/16 0527 09/24/16 0516 Imaging Head Magnetic Resonance Angiography 09/23/16 0000 Signed Impressions: Service Date/Time: Friday, September 23, 2016 11:55 - CONCLUSION: Mild intracranial atherosclerosis without an acute vascular abnormality demonstrated. Noman Calderon MD Brain MRI 09/23/16 0000 Signed Impressions: Service Date/Time: Friday, September 23, 2016 11:55 - CONCLUSION: 1. No acute infarct or other acute intracranial abnormality demonstrated. 2. Chronic white matter changes as above. These are nonspecific but considerable for a patient this age and with a prominent pericallosal component. Multiple sclerosus should be included in the differential. Noman Calderon MD Head CT 09/22/16 1306 Signed Impressions: Service Date/Time: Thursday, September 22, 2016 15:24 - CONCLUSION: 1. Nonspecific white matter changes. 2. No acute intracranial abnormality. Shashank Colindres MD Chest X-Ray 09/22/16 1306 Signed Impressions: Service Date/Time: Thursday, September 22, 2016 13:05 - CONCLUSION: No acute cardiopulmonary abnormality is identified. Noman Roche MD Carotid Artery Ultrasound 09/22/16 0000 Signed Impressions: Service Date/Time: Thursday, September 22, 2016 17:58 - CONCLUSION: 1. Bilateral carotid bifurcation atherosclerotic plaque demonstrated, moderate on the right and mild on the left. No hemodynamically significant narrowing. 2. Incidentally seen bilateral nonspecific small thyroid nodules. Dedicated outpatient thyroid ultrasound recommended for further evaluation and probable surveillance. Noman Calderon MD Abdomen/Pelvis CT 09/22/16 0000 Signed Impressions: Service Date/Time: Thursday, September 22, 2016 15:27 - CONCLUSION: 1. Diverticulosis of the sigmoid colon without diverticulitis. 2. Liver is slightly heterogeneous and nodular may be related to early morphologic changes. 3. Chronic pancreatitis. 4. Cholecystectomy. 1. Shashank Colindres MD Objective Remarks GENERAL: WN, WD female laying comfortably in bed in NAD. SKIN: Warm and dry without rash. HEENT: AT/NC. PERRLA. EOMI w/o nystagmus. No nasal drainage. MMM. NECK: Supple no tender LAD or JVD. HEART: RRR no m/r/g. LUNGS: CTAB without wheezes or crackles. ABDOMEN: Soft, NT, ND. EXTREMITIES: No LE edema or calf tenderness. Internal rotation of hips produces significant pain bilaterally, L>>R. NEURO: Awake and alert. Oriented x 3. CN II-XII intact. UE and LE strength 5/5 bilaterally. No pronator drift. Normal speech without slurring. PSYCH: Appropriate mood and affect. (Mayra Coelman MD) A/P Assessment and Plan 61-year-old female with a past medical history significant for uncontrolled DM, HLD, hypertriglyceridemia, HTN, and seizure disorder was admitted on 09/22 for dizziness and "absent" spells. 1. Dizziness - CT head with nonspecific white matter changes but no acute intracranial process - MRA brain with mild atheroscleosis without acute vascular abnormality - Carotid U/S with no hemodynamically significant stenosis - MRI without contrast did not show an acute infarct but nonspecific chronic white matter changes were noted therefore f/u study with contrast ordered showing an abnormal 2.2 cm area of gyriform enhancement in the posterior right temporal lobe as well as chronic white matter ischemic changes with remote lacunar infarct on the left - Neurology consulted; will await recommendations - Continue ASA, statin 2. Seizure disorder - Patient having absent spells lasting seconds to minutes that self resolved - Continue home Keppra 500 mg PO BID - Counseled on driving cessation - EEG with no epileptiform activity 3. UTI - Culture growing Gram negative rods - Continue Bactrim and follow final culture and sensitivity 4. Hypertension - Initially allowed permissive HTN during stroke work-up - Resume home metoprolol and Losartan 5. DM - A1c significantly elevated at 11.6 - Home regimen is Lantus 40 units BID and Novolog "sliding scale" in the AM and PM, unrelated to meals - Continue long-acting home insulin - SSI per protocol. Will see daily needs and adjust home Novolog dosing on discharge - para educator and medical affairs leader consulted 6. Dyslipidemia - TGs significantly elevated at 1686 with total cholesterol 286 and LDL unable to be calculated - Continue home statin and fenofibrate (hesitant to increase statin since she is on fenofibrate and do not want to precipitate myopathy) 7. Hip OA - Tylenol PRN 8. Thyroid nodules - Incidentally seen on U/S - Patient repots she was told of "abnormal" thyroid in the past - Will need to be followed as outpatient FEN: Fluids: Tolerating PO Electrolytes: WNL Nutrition: Diabetic diet DVT prophylaxis: Heparin 5000 units SQ Q8H dw Dr. Mims Discharge Planning Pending neuro reccs; possibly today or tomorrow. (Mayra Coleman MD) Attending Attestation Patient seen and examined. Case reviewed and discussed with the resident team. Agree with plan of care as discussed with me and documented in the resident note. (Ivonne Mims MD) Problem List: (1) Altered mental status Status: Acute (2) UTI (urinary tract infection) Status: Acute (3) Seizure disorder Status: Chronic (4) HTN (hypertension) Status: Chronic (5) HLD (hyperlipidemia) Status: Chronic (6) Diabetes mellitus Status: Chronic (Mayra Coleman MD) Problem List: (1) Altered mental status Status: Acute (2) UTI (urinary tract infection) Status: Acute (3) Seizure disorder Status: Chronic (4) HTN (hypertension) Status: Chronic (5) HLD (hyperlipidemia) Status: Chronic (6) Diabetes mellitus Status: Chronic (Ivonne Mims MD) Problem Qualifiers (1) Altered mental status: Qualified Code: R40.4 - Transient alteration of awareness (2) UTI (urinary tract infection): (3) HTN (hypertension): Qualified Code: I10 - Essential hypertension (4) HLD (hyperlipidemia): Qualified Code: E78.00 - Pure hypercholesterolemia Mayra Coleman MD Sep 24, 2016 08:44 Ivonne Mims MD Sep 26, 2016 14:27
[2016-09-24] MEDS ORDERED: ACETAMINOPHEN 325 MG TAB PO PRN (08:45)
[2016-09-24] MEDS ORDERED: GADODIAMIDE PF 287 MG/ML 5 ML VIAL (for RAD MRI) IV ONE (08:51)
[2016-09-24] MEDS: INSULIN DETEMIR 100 UNITS/ML VIAL SQ SCH ×2 (09:00→21:48)
--- NOTE | 2016-09-24 09:35 | RADRPT ---
EXAM DATE/TIME: 09/24/2016 08:34 This report includes an Addendum and supersedes previous reports for this exam. [facility] COMPARISON: MRI BRAIN W/O CONTRAST, September 23, 2016, 11:55. CT BRAIN W/O CONTRAST, September 22, 2016, 15:24. INDICATIONS : Seizures. CONTRAST: 14 cc Omniscan (gadodiamide) IV MEDICAL HISTORY : Hypertension. Diabetes mellitus type 2. Myocardial infarction. Seizures. SURGICAL HISTORY : Tonsillectomy. Appendectomy. Cholecystectomy. Hernia. Loop recorder. ENCOUNTER: Subsequent ACUITY: 3 day PAIN SCORE: 07/28 LOCATION: head. TECHNIQUE: Multiplanar, multisequence MRI of the brain was performed both prior to and following the administrat ion of paramagnetic contrast. FINDINGS: Postcontrast images were performed on today's exam and comparison is made with September 23 MRI and September [address] Postcontrast images reveal an approximately 2.2 cm area of abnormal enhancement in the pos terior right temporal lobe. The enhancement pattern is somewhat gyriform in appearance. There is no s ignificant abnormal signal on diffusion-weighted images to suggest recent infarct. Findings are nonsp ecific. Focal area of cerebritis or perhaps subacute infarct could give this appearance. Cannot excl ude neoplasm. Again seen are mild to moderate chronic white matter ischemic changes with a remote lacunar infarct i n the left posterior periventricular white matter stable since prior study. No mass effect or midline shift. No hydrocephalus. No abnormal extra-axial fluid collections. CONCLUSION: 1. Abnormal 2.2 cm area of gyriform enhancement in the posterior right temporal lobe. Differential di agnosis includes a focal cerebritis or less likely subacute infarct. No significant signal abnormalit y on the diffusion weighted images. Cannot exclude neoplasm. 2. Chronic white matter ischemic changes with remote lacunar infarct on the left. Humza Valdez MD on September 24, 2016 at 9:19 Board Certified Radiologist. This report was verified electronically. ADDENDUM: Case reviewed with additional clinical information and after discussion with Dr. Vines. The findin gs described above are more characteristic of a subacute infarct. Significantly more edema would be e xpected with focal cerebritis causing this much general enhancement. Lack of significant mass effect and edema is more consistent with a subacute infarct. Additionally chronic ischemic white matter orona ges are noted. Ady Enriquez MD on September 25, 2016 at 15:59 Board Certified Radiologist. This report was verified electronically.
[2016-09-24] MEDS ORDERED: VANCOMYCIN 500 MG VIAL (FOR ORAL USE ONLY) PO SCH (10:00)
--- NOTE | 2016-09-24 10:09 | EKG ---
Date Performed: 09/22/2016 Time Performed: 13:09:41 PTAGE: 61 years EKG: Sinus rhythm INFERIOR MYOCARDIAL INFARCTION [40+ ms Q WAVE AND/OR ST/T ABNORMALITY IN II/aVF], PROBABLY OLD MODER ATE T-WAVE ABNORMALITY, CONSIDER LATERAL ISCHEMIA [-0.1+ mV T WAVE IN I/aVL/V5/V6] ABNORMAL ECG NO PREVIOUS TRACING DOCTOR: Jaxon Donahue Interpretating Date/Time 09/24/2016 10:31:54
[2016-09-24] MEDS: CITALOPRAM HYDROBROMIDE 20 MG TAB PO SCH (10:36)
[2016-09-24] MEDS: FENOFIBRATE 145 MG TAB PO SCH (10:37)
[2016-09-24] MEDS: SULFAMETHOXAZOLE-TRIMETHOPRIM DS 800-160 MG TAB PO SCH ×2 (10:37→21:50)
[2016-09-24] MEDS: ASPIRIN 325 MG TAB PO SCH (10:37)
[2016-09-24] MEDS: PRAVASTATIN SOD 20 MG TAB PO SCH (10:37)
[2016-09-24] MEDS: levETIRAcetam 500 MG TAB PO SCH ×2 (10:37→21:50)
[2016-09-24] MEDS: POTASSIUM CHLORIDE 10 MEQ CAP PO SCH ×2 (10:37→21:50)
[2016-09-24] MEDS: PREGABALIN 75 MG CAP PO SCH ×2 (10:38→21:50)
[2016-09-24] MEDS: SODIUM CHLORIDE 0.9% FLUSH 5 ML FLUSH IVF SCH ×2 (10:38→21:50)
[2016-09-24 12:00] VITALS: BP 182/89; PULSE 74; RESP 20; TEMP 99.6; O2SAT 95
[2016-09-24 16:00] VITALS: BP 182/84; PULSE 75; RESP 19; TEMP 97.1; O2SAT 95
[2016-09-24] MEDS ORDERED: NALOXONE HCL 0.4 MG/ML AMP IV PRN (19:45)
[2016-09-24 19:46] VITALS: O2SAT 96
[2016-09-24 20:00] VITALS: BP 172/87; PULSE 76; RESP 20; TEMP 98.3; O2SAT 96
[2016-09-24] MEDS: ACETAMINOPHEN/HYDROcodone 325 MG/5 MG TAB PO PRN (21:50)
[2016-09-25] VITALS (7 sets, daily range): BP systolic 131–147; BP diastolic 69–84; PULSE 62–99; RESP 18–20; TEMP 96.1–98.4; O2SAT 95–99
[2016-09-25] MEDS: ACETAMINOPHEN/HYDROcodone 325 MG/5 MG TAB PO PRN ×4 (01:14→15:57)
[2016-09-25] MEDS: HEPARIN SODIUM - SQ 10,000 UNITS/ML VIAL SQ SCH ×3 (01:14→15:57)
[2016-09-25] MEDS: INSULIN ASPART SUPPLEMENTAL SCALE SQ SCH ×4 (06:03→20:48)
[2016-09-25] MEDS: levETIRAcetam 500 MG TAB PO SCH ×2 (07:53→20:39)
[2016-09-25] MEDS: FENOFIBRATE 145 MG TAB PO SCH (07:53)
[2016-09-25] MEDS: SODIUM CHLORIDE 0.9% FLUSH 5 ML FLUSH IVF SCH ×2 (07:53→20:38)
[2016-09-25] MEDS: ASPIRIN 325 MG TAB PO SCH (07:53)
[2016-09-25] MEDS: PRAVASTATIN SOD 20 MG TAB PO SCH (07:54)
[2016-09-25] MEDS: CITALOPRAM HYDROBROMIDE 20 MG TAB PO SCH (07:54)
[2016-09-25] MEDS: PREGABALIN 75 MG CAP PO SCH ×2 (07:54→20:39)
[2016-09-25] MEDS: SULFAMETHOXAZOLE-TRIMETHOPRIM DS 800-160 MG TAB PO SCH ×2 (07:54→20:38)
[2016-09-25] MEDS: POTASSIUM CHLORIDE 10 MEQ CAP PO SCH ×2 (07:56→20:39)
[2016-09-25] MEDS: INSULIN DETEMIR 100 UNITS/ML VIAL SQ SCH ×2 (07:56→20:40)
--- NOTE | 2016-09-25 08:14 | HHI.FPPN ---
Subjective Remarks Pt seen and examined this morning. AFVSS. No acute events overnight. Reports she is feeling well, just a mild amount of dizziness which she is used to. Denies blurry vision, diplopia, slurred speech, weakness, gait instability, chest pain, or shortness of breath. Tolerating PO without nausea or vomiting. Ambulating without difficulties. Complains of hip pain; states Tylenol irritates her stomach. She takes Aleve at home which works. (Mayra Coleman MD) Objective Vitals Vital Signs Date Time Temp Pulse Resp B/P Pulse Ox O2 Delivery O2 Flow Rate FiO2 09/25/16 04:00 96.8 80 20 147/75 95 09/25/16 00:00 97.8 99 20 134/84 96 09/24/16 20:00 98.3 76 20 172/87 96 09/24/16 19:46 96 21 09/24/16 16:00 97.1 75 19 182/84 95 09/24/16 12:00 99.6 74 20 182/89 95 I/O 09/24/16 09/24/16 09/24/16 09/25/16 09/25/16 09/25/16 07:00 15:00 23:00 07:00 15:00 23:00 Intake Total 420 ml 1080 ml 480 ml 1440 ml Output Total 800 ml Balance 420 ml 280 ml 480 ml 1440 ml Intake Oral 420 ml 1080 ml 480 ml 1440 ml Output Urine Total 800 ml # Voids 3 2 5 # Bowel Movements 0 0 1 (Mayra Coleman MD) Result Diagram: 09/23/16 0527 09/24/16 0516 Objective Remarks GENERAL: WN, WD female sitting up comfortably in bed in NAD. Pleasant and cooperative. SKIN: Warm and dry without rash. HEENT: AT/NC. PERRLA. EOMI w/o nystagmus. No nasal drainage. MMM. NECK: Supple no tender LAD or JVD. HEART: RRR no m/r/g. LUNGS: CTAB without wheezes or crackles. ABDOMEN: Soft, NT, ND. EXTREMITIES: No LE edema or calf tenderness. NEURO: Awake and alert. Oriented x 3. CN II-XII intact. UE and LE strength 5/5 bilaterally. No pronator drift. Normal speech without slurring. Patient leans to left in Romberg position. Normal gait. PSYCH: Appropriate mood and affect. (Mayra Coleman MD) A/P Assessment and Plan 61-year-old female with a past medical history significant for uncontrolled DM, HLD, hypertriglyceridemia, HTN, and seizure disorder was admitted on 09/22 for dizziness and "absent" spells. 1. Dizziness - CT head with nonspecific white matter changes but no acute intracranial process - MRA brain with mild atherosclerosis without acute vascular abnormality - Carotid U/S with no hemodynamically significant stenosis - MRI without contrast did not show an acute infarct but nonspecific chronic white matter changes were noted therefore f/u study with contrast ordered showing an abnormal 2.2 cm area of gyriform enhancement in the posterior right temporal lobe as well as chronic white matter ischemic changes with remote lacunar infarct on the left - Neurology consulted; recommending LP but since patient on ASA it will not be done for five days. Will consult ID to see if LP can be done as outpatient or if patient should be empirically started on antiviral therapy 2. Seizure disorder - Patient having absent spells lasting seconds to minutes that self-resolve - Continue home Keppra 500 mg PO BID - Counseled on driving cessation - EEG with no epileptiform activity 3. UTI - Culture growing beckford-sensitive E. coli - Continue Bactrim 4. Hypertension - Initially allowed permissive HTN during stroke work-up - Resume home metoprolol and Losartan 5. DM - A1c significantly elevated at 11.6 - Home regimen is Lantus 40 units BID and Novolog "sliding scale" in the AM and PM, unrelated to meals - Continue long-acting home insulin - SSI per protocol. Will see daily needs and adjust home Novolog dosing on discharge - head of sales and natural resources technician consulted 6. Dyslipidemia - TGs significantly elevated at 1686 with total cholesterol 286 and LDL unable to be calculated - Continue home statin and fenofibrate (hesitant to increase statin since she is on fenofibrate and do not want to precipitate myopathy) 7. Hip OA - Naproxen PRN 8. Thyroid nodules - Incidentally seen on U/S - Patient repots she was told of "abnormal" thyroid in the past - Will need to be followed as outpatient FEN: Fluids: Tolerating PO Electrolytes: WNL Nutrition: Diabetic diet DVT prophylaxis: Heparin 5000 units SQ Q8H dw Dr. Mims Discharge Planning Pending ID recommendations (Mayra Coleman MD) Attending Attestation Patient seen and examined. Case reviewed and discussed with the resident team. Agree with plan of care as discussed with me and documented in the resident note. (Ivonne Mims MD) Problem List: (1) Altered mental status Status: Acute (2) UTI (urinary tract infection) Status: Acute (3) Seizure disorder Status: Chronic (4) HTN (hypertension) Status: Chronic (5) HLD (hyperlipidemia) Status: Chronic (6) Diabetes mellitus Status: Chronic (Mayra Coleman MD) Problem Qualifiers (1) Altered mental status: Qualified Code: R40.4 - Transient alteration of awareness (2) UTI (urinary tract infection): (3) HTN (hypertension): Qualified Code: I10 - Essential hypertension (4) HLD (hyperlipidemia): Qualified Code: E78.00 - Pure hypercholesterolemia Mayra Coleman MD Sep 25, 2016 08:14 Ivonne Mims MD Sep 26, 2016 14:27
[2016-09-25] MEDS: LOSARTAN 50 MG TAB PO SCH (10:37)
[2016-09-25] MEDS: METOPROLOL TARTRATE 50 MG TAB PO SCH ×2 (10:37→20:39)
[2016-09-25] MEDS ORDERED: NAPROXEN 250 MG TAB PO PRN (13:45)
--- NOTE | 2016-09-25 15:47 | PD.ID.CON ---
History of Present Illness Service ID Consult Requested By Dr Coleman Reason for Consult cerebritis Primary Care Physician Paco Moore MD Diagnoses: History of Present Illness This 61-year-old woman presents to the emergency department brought complaining of unsteadiness in her gait and confusion for the past 2 days. + fecal incotinence aw 1 day of diarrhea She denies any fever, chills No fever, no leukocytosis She co some hallucinations x 2 yrs and dizziness Denies disuria, UA wo pyuria, urine clx +; pt was started on Bactrim She is afebrile and has no leukocytosis Her MRI raised a possibility of cerebritis Pt feels fine, ambulates wo assistance Pt denies h/o syphilis or HIV Review of Systems Except as stated in HPI: all other systems reviewed are Neg Past Family Social History Allergies: Coded Allergies: No Known Allergies (Unverified , 09/22/16) Past Medical History DM HLD HTN Seizure disorder - last seizure 1 year ago Past Surgical History Neck cyst removal Hernia repair Appendectomy Cholecystectomy Loop recorder lumpectomy 40 yrs ago Active Ordered Medications Medications where reviewed in EMR Antibiotics Include: TS Family History Unknown to patient Social History Lives in [place] with roommate. Occasional EtOH. Smokes PPD x 50 years. No illicit drug. Physical Exam Vital Signs Vital Signs Date Time Temp Pulse Resp B/P Pulse Ox O2 Delivery O2 Flow Rate FiO2 09/25/16 12:00 98.4 67 20 144/82 98 09/25/16 08:00 97.2 74 18 138/74 96 09/25/16 04:00 96.8 80 20 147/75 95 09/25/16 00:00 97.8 99 20 134/84 96 09/24/16 20:00 98.3 76 20 172/87 96 09/24/16 19:46 96 21 09/24/16 16:00 97.1 75 19 182/84 95 Physical Exam CONSTITUTIONAL/GENERAL: This is an adequately nourished patient, in no apparent distress. TUBES/LINES/DRAINS: SKIN: No jaundice, rashes, or lesions. Ecchymoses on upper extremities. No wounds seen anteriorly. Skin temperature appropriate. Not diaphoretic. HEAD: Atraumatic. Normocephalic. EYES: Pupils equal and round and reactive. Extraocular motions intact. No scleral icterus. No injection or drainage. Fundi not examined. ENT: Hearing grossly normal. Nose without bleeding or purulent drainage. Throat without visible erythema, exudates, masses, or lesions. Edentulous NECK: Trachea midline. Supple, nontender. CARDIOVASCULAR: Regular rate and rhythm without murmurs, gallops, or rubs. No JVD. Peripheral pulses symmetric. RESPIRATORY/CHEST: Symmetric, unlabored respirations. Clear to auscultation. Breath sounds equal bilaterally. No wheezes, rales, or rhonchi. GASTROINTESTINAL: Abdomen soft, non-tender, nondistended. No hepato-splenomegaly , or palpable masses. No guarding. Bowel sounds present. GENITOURINARY: Without palpable bladder distension. MUSCULOSKELETAL: Extremities without clubbing, cyanosis, or edema. No joint tenderness or effusion noted. No calf tenderness. No mottling or clubbing. LYMPHATICS: No palpable cervical or supraclavicular adenopathy. NEUROLOGICAL: Awake and alert. Motor and sensory grossly within normal limits. Follows commands. Normal speech Short memory deficits evident (could not recall last meal today Moves all extremities. PSYCHIATRIC: No obvious anxiety/depression. no apparent hallucinations or other psychotic thought process. Laboratory Date/Time Procedure Status Source Growth 09/22/16 19:30 Urine Culture - Final Complete Urine Clean Catch Escherichia Coli Result Diagram: 09/23/16 0527 09/24/16 0516 Imaging Last Impressions Brain MRI 09/24/16 0000 Signed Impressions: Service Date/Time: September 08:34 - CONCLUSION: 1. Abnormal 2.2 cm area of gyriform enhancement in the posterior right temporal lobe. Differential diagnosis includes a focal cerebritis or less likely subacute infarct. No significant signal abnormality on the diffusion weighted images. Cannot exclude neoplasm. 2. Chronic white matter ischemic changes with remote lacunar infarct on the left. Humza Valdez MD Head Magnetic Resonance Angiography 09/23/16 0000 Signed Impressions: Service Date/Time: Friday, September 23, 2016 11:55 - CONCLUSION: Mild intracranial atherosclerosis without an acute vascular abnormality demonstrated. Noman Calderon MD Head CT 09/22/16 1306 Signed Impressions: Service Date/Time: Thursday, September 22, 2016 15:24 - CONCLUSION: 1. Nonspecific white matter changes. 2. No acute intracranial abnormality. Shashank Colindres MD Chest X-Ray 09/22/16 1306 Signed Impressions: Service Date/Time: Thursday, September 22, 2016 13:05 - CONCLUSION: No acute cardiopulmonary abnormality is identified. Noman Roche MD Carotid Artery Ultrasound 09/22/16 0000 Signed Impressions: Service Date/Time: Thursday, September 22, 2016 17:58 - CONCLUSION: 1. Bilateral carotid bifurcation atherosclerotic plaque demonstrated, moderate on the right and mild on the left. No hemodynamically significant narrowing. 2. Incidentally seen bilateral nonspecific small thyroid nodules. Dedicated outpatient thyroid ultrasound recommended for further evaluation and probable surveillance. Noman Calderon MD Abdomen/Pelvis CT 09/22/16 0000 Signed Impressions: Service Date/Time: Thursday, September 22, 2016 15:27 - CONCLUSION: 1. Diverticulosis of the sigmoid colon without diverticulitis. 2. Liver is slightly heterogeneous and nodular may be related to early morphologic changes. 3. Chronic pancreatitis. 4. Cholecystectomy. 1. Shashank Colindres MD Assessment and Plan Assessment and Plan Suspected cerebritis - on MRI - I dw radiologist over the phone Her MRI is cw subacute stroke not cerebritis - The findings described above are more characteristic of a subacute infarct. Significantly more edema would be expected with focal cerebritis causing this much general enhancement. Lack of significant mass effect and edema is more consistent with a subacute infarct. Additionally chronic ischemic white matter changes are noted. Pts clinical presentation is not cw infection of BEAUTY SALES ADVISOR such as cerebrilts. Though she devfinetely has some neurological smx such as halluciantons, dizziness and memory issue She should have a ourough neurologicla doan including possibly LP if needed. Pt stated she could not see neurologist 2/2 insurance plan Of the infectious ethoilogy i would r/o HIV and syphilis; pt was cound=seled and agreed to be tested for HIV Bacteriuria, doubt UTI 2/2 lack of clinical smx and/or urinalysis findings HIV DEVON RPR no need for abx Discussed Condition With Dr Ady Vines,Tricia King MD Sep 25, 2016 15:47
[2016-09-26] VITALS: BP 124/68; PULSE 62; RESP 20; TEMP 96.2; O2SAT 95
[2016-09-26] MEDS: ACETAMINOPHEN/HYDROcodone 325 MG/5 MG TAB PO PRN (01:51)
[2016-09-26] MEDS: HEPARIN SODIUM - SQ 10,000 UNITS/ML VIAL SQ SCH ×2 (01:52→08:46)
[2016-09-26] MEDS: INSULIN ASPART SUPPLEMENTAL SCALE SQ SCH ×2 (04:43→10:38)
--- NOTE | 2016-09-26 07:59 | HHI.FPPN ---
Subjective Remarks Pt seen and examined this morning. AFVSS. No acute events overnight. Patient reports feeling back to her normal self. Dizziness has completely resolved. Denies any blurry vision or diplopia, weakness, gait instability, bowel or bladder dysfunction, CP, or SOB. She is ambulating throughout the halls and tolerating PO without nausea or vomiting. She would prefer to come back for LP in four days after being off ASA than having to stay and wait in the hospital. She follows with Dr. Moore in the Count [facility]cludes [facility]. (Mayra Coleman MD) Objective Vitals Vital Signs Date Time Temp Pulse Resp B/P Pulse Ox O2 Delivery O2 Flow Rate FiO2 09/26/16 00:00 96.2 62 20 124/68 95 09/25/16 20:00 96.1 67 20 137/78 95 09/25/16 17:41 99 21 09/25/16 16:00 97.8 62 20 131/69 99 09/25/16 12:00 98.4 67 20 144/82 98 09/25/16 08:00 97.2 74 18 138/74 96 I/O 09/25/16 09/25/16 09/25/16 09/26/16 09/26/16 09/26/16 07:00 15:00 23:00 07:00 15:00 23:00 Intake Total 1440 ml 1080 ml 720 ml 240 ml Output Total 700 ml Balance 1440 ml 380 ml 720 ml 240 ml Intake Oral 1440 ml 1080 ml 720 ml 240 ml Output Urine Total 700 ml # Voids 5 4 3 # Bowel Movements 0 2 (Mayra Coleman MD) Result Diagram: 09/23/16 0527 09/24/16 0516 Imaging Brain MRI 09/24/16 0000 Signed Impressions: Service Date/Time: September 08:34 - CONCLUSION: 1. Abnormal 2.2 cm area of gyriform enhancement in the posterior right temporal lobe. Differential diagnosis includes a focal cerebritis or less likely subacute infarct. No significant signal abnormality on the diffusion weighted images. Cannot exclude neoplasm. 2. Chronic white matter ischemic changes with remote lacunar infarct on the left. Humza Valdez MD ADDENDUM: Case reviewed with additional clinical information and after discussion with Dr. Vines. The findings described above are more characteristic of a subacute infarct. Significantly more edema would be expected with focal cerebritis causing this much general enhancement. Lack of significant mass effect and edema is more consistent with a subacute infarct. Additionally chronic ischemic white matter changes are noted. Ady Enriquez MD Head Magnetic Resonance Angiography 09/23/16 0000 Signed Impressions: Service Date/Time: Friday, September 23, 2016 11:55 - CONCLUSION: Mild intracranial atherosclerosis without an acute vascular abnormality demonstrated. Noman Calderon MD Head CT 09/22/16 1306 Signed Impressions: Service Date/Time: Thursday, September 22, 2016 15:24 - CONCLUSION: 1. Nonspecific white matter changes. 2. No acute intracranial abnormality. Shashank Colindres MD Chest X-Ray 09/22/16 1306 Signed Impressions: Service Date/Time: Thursday, September 22, 2016 13:05 - CONCLUSION: No acute cardiopulmonary abnormality is identified. Noman Roche MD Carotid Artery Ultrasound 09/22/16 0000 Signed Impressions: Service Date/Time: Thursday, September 22, 2016 17:58 - CONCLUSION: 1. Bilateral carotid bifurcation atherosclerotic plaque demonstrated, moderate on the right and mild on the left. No hemodynamically significant narrowing. 2. Incidentally seen bilateral nonspecific small thyroid nodules. Dedicated outpatient thyroid ultrasound recommended for further evaluation and probable surveillance. Noman Calderon MD Abdomen/Pelvis CT 09/22/16 0000 Signed Impressions: Service Date/Time: Thursday, September 22, 2016 15:27 - CONCLUSION: 1. Diverticulosis of the sigmoid colon without diverticulitis. 2. Liver is slightly heterogeneous and nodular may be related to early morphologic changes. 3. Chronic pancreatitis. 4. Cholecystectomy. 1. Shashank Colindres MD Objective Remarks GENERAL: WN, WD female sitting up comfortably in bed in NAD. Pleasant and cooperative. SKIN: Warm and dry without rash. HEENT: AT/NC. PERRLA. EOMI w/o nystagmus. No nasal drainage. MMM. NECK: Supple no tender LAD or JVD. HEART: RRR no m/r/g. LUNGS: CTAB without wheezes or crackles. ABDOMEN: Soft, NT, ND. EXTREMITIES: No LE edema or calf tenderness. NEURO: Awake and alert. Oriented x 3. CN II-XII intact. UE and LE strength 5/5 bilaterally. No pronator drift. Normal speech without slurring. Normal gait. PSYCH: Appropriate mood and affect. (Mayra Coleman MD) A/P Assessment and Plan 61-year-old female with a past medical history significant for uncontrolled DM, HLD, hypertriglyceridemia, HTN, and seizure disorder was admitted on 09/22 for dizziness and "absent" spells. 1. Dizziness/right temporal lobe enhancement - CT head with nonspecific white matter changes but no acute intracranial process - MRA brain with mild atherosclerosis without acute vascular abnormality - Carotid U/S with no hemodynamically significant stenosis - MRI without contrast did not show an acute infarct but nonspecific chronic white matter changes were noted therefore f/u study with contrast ordered showing an abnormal 2.2 cm area of gyriform enhancement in the posterior right temporal lobe as well as chronic white matter ischemic changes with remote lacunar infarct on the left. In the differential is cerebritis therefore ID was consulted. After reviewing image with radiologist, it was found to be more characteristic of a subacute infarct - RPR and HIV studies pending. No indication for antiviral therapy at this time as etiology not suspected to be infectious - Neurology consulted; recommending LP but since patient on ASA she will have to be off it for five days. Since she is stable and we are not providing her with any inpatient required intervention at this time, she can be discharged and will have her return next week for IR to perform LP 2. Seizure disorder - Patient having absent spells lasting seconds to minutes that self-resolve - Continue home Keppra 500 mg PO BID - Counseled on driving cessation - EEG with no epileptiform activity - Avoid medications such as tramadol that can lower seizure threshold 3. Hypertension - Initially allowed permissive HTN during stroke work-up - BPs have been normal - Resume home metoprolol and Losartan 4. DM - A1c significantly elevated at 11.6 - Home regimen is Lantus 40 units BID and Novolog "sliding scale" in the AM and PM, unrelated to meals - Continue long-acting home insulin - SSI per protocol while inpatient - Change home Novolog to 5 units TIDAC and PCP can adjust - school vocational educator and manager payer consulted and spoke with the patient 5. Dyslipidemia - TGs significantly elevated at 1686 with total cholesterol 286 and LDL unable to be calculated - Continue home statin and fenofibrate (hesitant to increase statin since she is on fenofibrate and do not want to precipitate myopathy) 6. Hip OA - Naproxen PRN 7. Thyroid nodules - Incidentally seen on U/S - Patient repots she was told of "abnormal" thyroid in the past - Will need to be followed as outpatient FEN: Fluids: Tolerating PO Electrolytes: WNL Nutrition: Diabetic diet selena Mims Discharge Planning D/C home today and patient will need to return on 09/30 or 10/01 for LP to be done by IR. (Mayra Coleman MD) Attending Attestation Patient seen and examined. Case reviewed and discussed with the resident team. Agree with plan of care as discussed with me and documented in the resident note. she feels great and wants to go home (Ivonne Mims MD) Problem List: (1) Altered mental status Status: Acute (2) UTI (urinary tract infection) Status: Acute (3) Seizure disorder Status: Chronic (4) HTN (hypertension) Status: Chronic (5) HLD (hyperlipidemia) Status: Chronic (6) Diabetes mellitus Status: Chronic (Mayra Coleman MD) Problem Qualifiers (1) Altered mental status: Qualified Code: R40.4 - Transient alteration of awareness (2) UTI (urinary tract infection): (3) HTN (hypertension): Qualified Code: I10 - Essential hypertension (4) HLD (hyperlipidemia): Qualified Code: E78.00 - Pure hypercholesterolemia Mayra Coleman MD Sep 26, 2016 07:59 Ivonne Mims MD Sep 26, 2016 14:28
[2016-09-26 08:00] VITALS: BP 128/68; PULSE 61; RESP 18; TEMP 97.5; O2SAT 95
[2016-09-26] MEDS ORDERED: NOVOINJ3 SQ (08:41)
[2016-09-26] MEDS: levETIRAcetam 500 MG TAB PO SCH (08:46)
[2016-09-26] MEDS: CITALOPRAM HYDROBROMIDE 20 MG TAB PO SCH (08:46)
[2016-09-26] MEDS: PREGABALIN 75 MG CAP PO SCH (08:46)
[2016-09-26] MEDS: FENOFIBRATE 145 MG TAB PO SCH (08:46)
[2016-09-26] MEDS: PRAVASTATIN SOD 20 MG TAB PO SCH (08:47)
[2016-09-26] MEDS: LOSARTAN 50 MG TAB PO SCH (08:47)
[2016-09-26] MEDS: POTASSIUM CHLORIDE 10 MEQ CAP PO SCH (08:47)
[2016-09-26] MEDS: SODIUM CHLORIDE 0.9% FLUSH 5 ML FLUSH IVF SCH (08:47)
[2016-09-26] MEDS: INSULIN DETEMIR 100 UNITS/ML VIAL SQ SCH (08:47)
[2016-09-26] MEDS: METOPROLOL TARTRATE 50 MG TAB PO SCH (08:47)
--- NOTE | 2016-09-26 09:19 | HHI.DCPOC ---
Discharge Care Plan Diagnosis: (1) Altered mental status (2) Right temporal lobe infarction (3) Seizure disorder Goals to Promote Your Health * To prevent worsening of your condition and complications * To maintain your health at the optimal level Directions to Meet Your Goals Take your medications as prescribed Follow your dietary instruction Follow activity as directed Keep your appointments as scheduled Take your immunizations and boosters as scheduled If your symptoms worsen call your PCP, if no PCP go to Urgent Care Center or Emergency Room Smoking is Dangerous to Your Health. Avoid second hand smoke Call the 24-hour hour crisis hotline for domestic abuse at Mayra Coleman MD Sep 26, 2016 09:18
--- NOTE | 2016-09-26 09:43 | HHI.DS ---
Discharge Summary Admission Date Sep 22, 2016 at 16:24 Discharge Date: Sep 26, 2016 Admitting Diagnosis altered mental status (1) Right temporal lobe infarction (2) Seizure disorder (3) Altered mental status (4) HTN (hypertension) (5) HLD (hyperlipidemia) Consultants Neurology Infectious disease Brief History 61-year-old female with a past medical history of severe hyperlipidemia, hypertension and seizure disorder presents to the emergency department with a 2 day history of weakness and altered mental status. Per the patient's roommate, the patient has been acting strangely and will have episodes of staring off into space and not ignore itching anything which then resolves on their own. The patient has a known seizure disorder for which she takes Keppra. Her last seizure was reportedly one year ago. The patient also has a history of "mini strokes" which were diagnosed also around a year ago at [facility]. The patient has had difficulty walking in a straight line, and has had to use the smith for balance. She describes weakness all over her body with no focal areas. Patient also complains of diffuse lower abdominal pain and diarrhea. She states that she regularly has diarrhea approximately every few weeks and that it always resolves on its own. She is status post multiple hernia repairs. CT of the abdomen and pelvis was significant only for chronic pancreatitis. CBC/BMP: 09/23/16 0527 09/24/16 0516 Significant Findings Laboratory Tests Test 09/24/16 05:16 Estimat Glomerular Filtration 79 ML/MIN (>89) Rate Imaging Brain MRI 09/24/16 0000 Signed Impressions: Service Date/Time: September 08:34 - CONCLUSION: 1. Abnormal 2.2 cm area of gyriform enhancement in the posterior right temporal lobe. Differential diagnosis includes a focal cerebritis or less likely subacute infarct. No significant signal abnormality on the diffusion weighted images. Cannot exclude neoplasm. 2. Chronic white matter ischemic changes with remote lacunar infarct on the left. Humza Valdez MD ADDENDUM: Case reviewed with additional clinical information and after discussion with Dr. Vines. The findings described above are more characteristic of a subacute infarct. Significantly more edema would be expected with focal cerebritis causing this much general enhancement. Lack of significant mass effect and edema is more consistent with a subacute infarct. Additionally chronic ischemic white matter changes are noted. Ady Enriquez MD Head Magnetic Resonance Angiography 09/23/16 0000 Signed Impressions: Service Date/Time: Friday, September 23, 2016 11:55 - CONCLUSION: Mild intracranial atherosclerosis without an acute vascular abnormality demonstrated. Noman Calderon MD Head CT 09/22/166 Signed Impressions: Service Date/Time: Thursday, September 22, 2016 15:24 - CONCLUSION: 1. Nonspecific white matter changes. 2. No acute intracranial abnormality. Shashank Colindres MD Chest X-Ray 09/22/161305 Signed Impressions: Service Date/Time: Thursday, September 22, 2016 13:05 - CONCLUSION: No acute cardiopulmonary abnormality is identified. Noman Roche MD Carotid Artery Ultrasound 09/22/16 0000 Signed Impressions: Service Date/Time: Thursday, September 22, 2016 17:58 - CONCLUSION: 1. Bilateral carotid bifurcation atherosclerotic plaque demonstrated, moderate on the right and mild on the left. No hemodynamically significant narrowing. 2. Incidentally seen bilateral nonspecific small thyroid nodules. Dedicated outpatient thyroid ultrasound recommended for further evaluation and probable surveillance. Noman Calderon MD Abdomen/Pelvis CT 09/22/16 Signed Impressions: Service Date/Time: Thursday, September 22, 2016 15:27 - CONCLUSION: 1. Diverticulosis of the sigmoid colon without diverticulitis. 2. Liver is slightly heterogeneous and nodular may be related to early morphologic changes. 3. Chronic pancreatitis. 4. Cholecystectomy. 1. Shashank Colindres MD PE at Discharge GENERAL: WN, WD female sitting up comfortably in bed in NAD. Pleasant and cooperative. SKIN: Warm and dry without rash. HEENT: AT/NC. PERRLA. EOMI w/o nystagmus. No nasal drainage. MMM. NECK: Supple no tender LAD or JVD. HEART: RRR no m/r/g. LUNGS: CTAB without wheezes or crackles. ABDOMEN: Soft, NT, ND. EXTREMITIES: No LE edema or calf tenderness. NEURO: Awake and alert. Oriented x 3. CN II-XII intact. UE and LE strength 5/5 bilaterally. No pronator drift. Normal speech without slurring. Normal gait. PSYCH: Appropriate mood and affect. Hospital Course 61-year-old female with a past medical history significant for uncontrolled DM, HLD, hypertriglyceridemia, HTN, and seizure disorder was admitted on 09/22/16 for dizziness and "absent" spells. Stroke work-up was initiated which was notable for 2.2 cm enhancement of right temporal lobe on MRI with contrast which was further reviewed as possible subacute infarct. Since cerebritis was in the differential, infectious disease was consulted who did not feel it appeared infectious but recommended RPR and HIV studies as well as possible LP. Neurology also consulted who agreed with LP. Since she was on aspirin, she could not get LP on 09/30 therefore she was discharged in stable condition on 09/26 with instructions to return on 09/30 for the LP procedure. Pt Condition on Discharge: Stable Discharge Disposition: Discharge Home Discharge Instructions DIET: Follow Instructions for: Diabetic Diet Activities you can perform: Regular-No Restrictions Follow up Referrals: Interventional Radiology - 09/30/16 Neurology - 1 Week with Vadim Marks MD Physician - 1 Week with Paco Portillo D.m.d. Changed Medications: Insulin Aspart Inj (Novolog Flexpen Inj) 300 Unit/3 Ml Pen 5 UNITS SQ TIDAC Blood Sugar Management #1 Ref 11 PEN (Changed from: 1 UNITS; ACHS SLIDING SCALE) Continued Medications: Citalopram (Celexa) 10 Mg Tab 10 MG PO DAILY Control Depression #30 Ref 11 TAB Fenofibrate (Fenofibrate) 145 Mg Tab 145 MG PO BID #30 Ref 11 TAB Insulin Glargine Inj (Lantus Solostar Pen Inj) 300 Unit/3 Ml Pen 40 UNITS SQ BID Blood Sugar Management #30 Ref 11 PEN Levetiracetam (Levetiracetam) 500 Mg Tab 500 MG PO BID Control Seizures #60 Ref 11 TAB Losartan (Losartan) 100 Mg Tab 100 MG PO DAILY Blood Pressure Management #30 Ref 11 TAB Lovastatin (Lovastatin) 20 Mg Tab 20 MG PO DAILY Cholesterol Management #30 Ref 11 TAB Meloxicam (Meloxicam) 7.5 Mg Tab 7.5 MG PO DAILY Arthritis Pain #30 Ref 11 TAB Metformin (Metformin) 1,000 Mg Tab 1000 MG PO BIDPC With meals Blood Sugar Management #60 Ref 11 TAB Metoprolol Tartrate (Metoprolol Tartrate) 50 Mg Tab 50 MG PO BID #60 Ref 11 TAB Potassium Chloride ER (Potassium Chloride ER) 10 Meq Cap 10 MEQ PO BID Electrolyte Replacement #60 Ref 11 CAP Pregabalin (Lyrica) 75 Mg Cap 75 MG PO BID #60 Ref 0 CAP Discontinued Medications: Tramadol (Tramadol) 50 Mg Tab 50 MG PO Q4H PRN PAIN #60 Ref 5 TAB Mayra Coleman MD Sep 26, 2016 09:43
[2016-09-26 09:46] VITALS: RESP 17
--- NOTE | 2016-09-26 09:59 | HHI.PR ---
Addendum to Inpatient Note Additional Information No e/o UI labs cw bacteriuria REc's: Tricia Michaels MD Sep 26, 2016 09:59
[2016-10-13] MEDS ORDERED: FURO20TA PO (14:53)
[2016-10-13] MEDS ORDERED: ASPI325T PO (15:15)
[2016-10-13] MEDS ORDERED: ATOR40TA16 PO (15:18)
[2016-10-14] MEDS ORDERED: PENT400T PO (09:17)
[2016-12-04] MEDS ORDERED: LYRI75CA PO (16:44)
[2017-01-13] MEDS ORDERED: MUPI2OIN TOPICAL (15:04)
== END 2016-09-26 10:57 | disposition home or self-care (01) | DRG 65 ==
LOC: NEPA 12:52 → NEDA 16:24 → N07A 20:24
PROVIDERS: ADMIT Family Medicine; ATTEND Family Medicine
DX: I63.9 Cerebral infarction, unspecified (principal); K86.1 Other chronic pancreatitis; E11.65 Type 2 diabetes mellitus with hyperglycemia; I10 Essential (primary) hypertension; E78.5 Hyperlipidemia, unspecified; G40.909 Epilepsy, unspecified, not intractable, without status epilepticus; F17.210 Nicotine dependence, cigarettes, uncomplicated; K57.30 Diverticulosis of large intestine without perforation or abscess without bleeding
CPT/HCPCS: 70450; 70544; 70551; 70553; 71010; 74177; 80048; 80053; 80061; 80307; 81001; 82565; 82948; 83036; 84443; 84484; 85025; 85610; 85730; 86592; 86703; 87077; 87086; 87186; 93005; 93306; 93880; 95819; 96360; 96361; A9579; J1644; J1815; J7030; Q9967

== ENCOUNTER 2016-09-30 07:59 | Day surgery (SDC) | payer OTHER ==
[~2016-09-30] VITALS: Ht 162.6 cm; Wt 70.0 kg
[~2016-09-30 07:59] MED LIST changes: -BLOOD GLUCOSE T1 TES T-DERMAL; -CILO100T PO; -LYRI150C PO; +LYRI75CA PO; -ONETMIS2 T-DERMAL; -PENT400T PO; -TRAM50TA PO; -[UNRECOGNIZED DRUG - OTHER] T-DERMAL; -[UNRECOGNIZED DRUG - OTHER] T-DERMAL
[2016-09-30 08:22] VITALS: BP 174/87; PULSE 65; RESP 20; TEMP 97.7; O2SAT 94
--- NOTE | 2016-09-30 11:19 | PD.RAD ---
Post Procedure Progress Note Pre Procedure Diagnosis: (1) Seizure disorder Post Procedure Diagnosis: (1) Seizure disorder Procedure Date: Sep 30, 2016 Supervising Radiologist: Abdias Romero JR Proceduralist/Assist: Tricia Mancuso, RT(R), RT Uvaldo(R) Anesthesia: Local Plan of Activity Patient to Unit: ROPU Patient Condition: Good See PACS Report for procedural detail/treatment Spinal Procedure Lumbar Puncture L3-L4 Fluid Removal (CCs): 12 Fluid Description: Clear Puncture Time: 11:01 Findings: Opening pressure: 13.2 cmH2O Clear CSF. Samples to lab. Jr. Nick,Abdias Eldridge MD Sep 30, 2016 11:19
[2016-09-30 12:41] LABS: CSF NEUTROPHILS 0 %; GROSS BLOOD TUBE #1 0 (0); GROSS BLOOD TUBE #2 0 (0); GROSS BLOOD TUBE #3 0 (0); GROSS BLOOD TUBE #4 0 (0); SUPERNATE COLOR TUBE #1 CLEAR (CLEAR); SUPERNATE COLOR TUBE #2 CLEAR (CLEAR); SUPERNATE COLOR TUBE #3 CLEAR (CLEAR); SUPERNATE COLOR TUBE #4 CLEAR (CLEAR); VOLUME TUBE # 1 2.2 ML; VOLUME TUBE # 2 2.7 ML; VOLUME TUBE # 3 2.4 ML; VOLUME TUBE # 4 3.8 ML; WBC TUBE #4 6 /MM3 (0-10)
[2016-09-30 12:43] LABS: CSF LYMPHOCYTES 86 %; CSF MONOCYTES 14 %
--- NOTE | 2016-09-30 14:09 | RADRPT ---
EXAM DATE/TIME: 09/30/2016 10:56 [facility] COMPARISON: No previous studies available for comparison. INDICATIONS : Patient with abnormal MRI in need of lumbar puncture with opening pressure. MEDICAL HISTORY : Seizures CVA x 2 CAD AR x 3 HTN Diabetes Osteoarthritis Hx of breast cancer Hx of skin cancer Hx of kidney stones SURGICAL HISTORY : Teratoma removal Tonsillectomy Cardiac stents Umbilical herna repair Appendectomy Cholecystectomy Lumpectomy Inturnal cardiac loop recorder. ENCOUNTER: Initial ACUITY: 1 week PAIN SCORE: 0/10 LUMBAR PUNCTURE TIME: 1101 hours FLUORO TIME: 1.5 minutes IMAGE SERIES: 0 ACCESS LEVEL: L3-4 OPENING PRESSURE: 13.2 cm of water CLOSING PRESSURE: Not requested. FLUID: 12 cc of clear CSF was collected and sent to the laboratory for analysis. PROCEDURE : 1. Fluoroscopic guided lumbar puncture. 2. Recording of opening pressure. The risks, benefits and alternatives to the procedure were explained and verbal and written consent w as obtained. The site was prepped in sterile fashion. Full sterile technique was used, including ca p, mask, sterile gloves and gown and a large sterile sheet. Hand hygiene and 2% chlorhexidine and/or betadine/alcohol prep was utilized per protocol for cutaneous antisepsis. The skin and subcutaneous tissues were infiltrated with local anesthetic solution. With fluoroscopic guidance the lumbar thecal sac was punctured at the above level described above and the opening pressure was recorded. The above described fluid was removed without difficulty. The patient tolerated the procedure well and there were no complications. CONCLUSION: Uncomplicated fluoroscopically guided lumbar puncture. Opening pressure within the no rmal range. Samples of CSF sent to the lab as requested Abdias Romero Jr., MD on September 30, 2016 at 14:07 Board Certified Radiologist. This report was verified electronically.
[2016-10-01 10:25] LABS: HSV 1,PCR Negative (Negative)
[2016-10-01 16:03] LABS: LYME IGG IMMUNOBLOT CSF None Detected bands (None Detected); LYME IGM IMMUNOBLOT CSF None Detected bands (None Detected)
[2016-10-02 15:53] LABS: B. BURGDORFERI DNA PCR CSF NOT DETECTED (())
[2016-10-13] MEDS ORDERED: FURO20TA PO (14:53)
[2016-10-13] MEDS ORDERED: ASPI325T PO (15:15)
[2016-10-13] MEDS ORDERED: ATOR40TA16 PO (15:18)
[2016-10-14] MEDS ORDERED: PENT400T PO (09:17)
[2016-12-04] MEDS ORDERED: LYRI75CA PO (16:44)
[2017-01-13] MEDS ORDERED: MUPI2OIN TOPICAL (15:04)
== END 2016-09-30 14:00 | disposition home or self-care (01) ==
LOC: HROP 07:59 → HRIP 08:00 → HROP 14:00
PROVIDERS: ATTEND Family Medicine
DX: G40.909 Epilepsy, unspecified, not intractable, without status epilepticus (principal); I25.10 Atherosclerotic heart disease of native coronary artery without angina pectoris; E11.9 Type 2 diabetes mellitus without complications; I10 Essential (primary) hypertension; I25.2 Old myocardial infarction; Z95.5 Presence of coronary angioplasty implant and graft; Z85.3 Personal history of malignant neoplasm of breast; Z85.828 Personal history of other malignant neoplasm of skin; Z86.73 Personal history of transient ischemic attack (TIA), and cerebral infarction without residual deficits; Z87.442 Personal history of urinary calculi
CPT/HCPCS: 62270; 77003; 82945; 84157; 86618; 87070; 87205; 87529; 87801; 89051

== ENCOUNTER 2017-12-06 06:26 | Day surgery (SDC) | END 2017-12-06 12:09 | disposition home or self-care (01) | DX: C34.90 Malignant neoplasm of unspecified part of unspecified bronchus or lung (principal); I11.0 Hypertensive heart disease with heart failure; I50.9 Heart failure, unspecified; E78.5 Hyperlipidemia, unspecified; K21.9 Gastro-esophageal reflux disease without esophagitis; R56.9 Unspecified convulsions; I25.2 Old myocardial infarction; I25.10 Atherosclerotic heart disease of native coronary artery without angina pectoris; E11.9 Type 2 diabetes mellitus without complications; F41.9 Anxiety disorder, unspecified; Z86.73 Personal history of transient ischemic attack (TIA), and cerebral infarction without residual deficits; Z85.828 Personal history of other malignant neoplasm of skin; Z01.818 Encounter for other preprocedural examination | CPT/HCPCS: 36561; 76937; 77001; 85025; 85610; 85730; 99152; 99153; C1788; J0690; J1642; J2250; J3010; J3370; J7030; J7050 ==